=== PATIENT | female | born 1955 | race Caucasian/White ===

== ENCOUNTER 2020-09-29 20:13 | Emergency (ER) | payer OTHER | END 2020-09-29 21:34 | disposition left against medical advice (07) | LOC: MW.ED 20:13 | DX: Z53.21 Procedure and treatment not carried out due to patient leaving prior to being seen by health care provider (principal) ==

== ENCOUNTER 2020-10-03 14:49 | Inpatient (IN) | payer OTHER ==
[2020-10-03] MEDS ORDERED: Sodium Chloride 0.9% 1,000 ML IV ONE (15:38)
--- NOTE | 2020-10-03 15:44 | EDM.PDOC ---
ED HPI GENERAL MEDICAL PROBLEM - General Chief Complaint: General Stated Complaint: COVID POSITIVE Time Seen by Provider: 10/03/20 15:13 Source of Information: Reports: Patient History Limitations: Reports: No Limitations - History of Present Illness INITIAL COMMENTS - FREE TEXT/NARRATIVE: She is a 64-year-old female who tested positive Covid a few days ago presents today for worsening symptoms. States she has a hard time get around caring for self she is weak and tired she also has increased shortness of breath but no cough. She denies any fever chills. He does have diffuse body aches. Has had decreased p.o. intake as well. Patient denies any other symptoms. - Related Data Allergies Allergy/AdvReac Type Severity Reaction Status Date / Time indomethacin Allergy Other Verified 10/03/20 15:09 Home Meds: Home Meds . [No Known Home Meds] 09/29/20 [History] Past Medical History Cardiovascular History: Reports: Hypertension Gastrointestinal History: Reports: GERD Endocrine/Metabolic History: Reports: Hypothyroidism - Infectious Disease History Infectious Disease History: Reports: Chicken Pox Social & Family History - Family History Family Medical History: No Pertinent Family History - Tobacco Use Tobacco Use Status *Q: Never Tobacco User - Caffeine Use Caffeine Use: Reports: None - Recreational Drug Use Recreational Drug Use: No ED ROS GENERAL - Review of Systems Review Of Systems: See Below Constitutional: Reports: Malaise HEENT: Reports: No Symptoms Respiratory: Reports: No Symptoms Cardiovascular: Reports: No Symptoms Endocrine: Reports: No Symptoms GI/Abdominal: Reports: No Symptoms : Reports: No Symptoms Musculoskeletal: Reports: No Symptoms Skin: Reports: No Symptoms Neurological: Reports: No Symptoms Psychiatric: Reports: No Symptoms Hematologic/Lymphatic: Reports: No Symptoms Immunologic: Reports: No Symptoms ED EXAM, GENERAL - Physical Exam Exam: See Below Exam Limited By: No Limitations General Appearance: Alert, WD/WN, No Apparent Distress Eye Exam: Bilateral Eye: EOMI, PERRL Head: Atraumatic, Normocephalic Neck: Normal Inspection Respiratory/Chest: No Respiratory Distress, Lungs Clear, Normal Breath Sounds Cardiovascular: Normal Peripheral Pulses, Regular Rate, Rhythm GI/Abdominal: Normal Bowel Sounds, Soft, Non-Tender Back Exam: Normal Inspection Extremities: Normal Inspection, Normal Range of Motion Neurological: Alert, Oriented, CN II-XII Intact, Normal Cognition, Normal Gait #1 Interpretation EKG Date: 10/03/20 Time: 16:01 Rhythm: NSR Rate (Beats/Min): 72 ST-T: Normal Course - Vital Signs Last Recorded V/S: Last Vital Signs Temp 98.9 F 10/03/20 15:10 Pulse 71 10/03/20 17:28 Resp 20 10/03/20 17:28 BP 106/57 L 10/03/20 17:28 Pulse Ox 94 L 10/03/20 17:28 - Orders/Labs/Meds Orders: Active Orders 24 hr Category Date Time Status Patient Status [ADT] Routine ADT 10/03/20 18:16 Ordered Ang Chest [CT] Stat Exams 10/03/20 16:46 Taken BILIRUBIN DIRECT [CHEM] DAILY Lab 10/03/20 18:15 Ordered BILIRUBIN DIRECT [CHEM] DAILY Lab 10/04/20 18:15 Ordered BILIRUBIN DIRECT [CHEM] DAILY Lab 10/05/20 18:15 Ordered BILIRUBIN DIRECT [CHEM] DAILY Lab 10/06/20 18:15 Ordered BILIRUBIN DIRECT [CHEM] DAILY Lab 10/07/20 18:15 Ordered BILIRUBIN DIRECT [CHEM] DAILY Lab 10/08/20 18:15 Ordered BILIRUBIN DIRECT [CHEM] Stat Lab 10/03/20 18:15 Ordered COMPREHENSIVE METABOLIC PN,CMP [CHEM] DAILY Lab 10/03/20 18:15 Ordered COMPREHENSIVE METABOLIC PN,CMP [CHEM] DAILY Lab 10/04/20 18:15 Ordered COMPREHENSIVE METABOLIC PN,CMP [CHEM] DAILY Lab 10/05/20 18:15 Ordered COMPREHENSIVE METABOLIC PN,CMP [CHEM] DAILY Lab 10/06/20 18:15 Ordered COMPREHENSIVE METABOLIC PN,CMP [CHEM] DAILY Lab 10/07/20 18:15 Ordered COMPREHENSIVE METABOLIC PN,CMP [CHEM] DAILY Lab 10/08/20 18:15 Ordered COMPREHENSIVE METABOLIC PN,CMP [CHEM] Stat Lab 10/03/20 18:15 Ordered CORONAVIRUS COVID-19 LOLIS [MOLEC] Stat Lab 10/03/20 17:29 Received Labs: Laboratory Tests 10/03/20 10/03/20 10/03/20 Range/Units 15:48 15:48 15:48 WBC 4.62 (4.0-11.0) K/uL RBC 4.38 (4.30-5.90) M/uL Hgb 13.1 (12.0-16.0) g/dL Hct 39.3 (36.0-46.0) % MCV 89.7 (80.0-98.0) fL MCH 29.9 (27.0-32.0) pg MCHC 33.3 (31.0-37.0) g/dL RDW Std Deviation 44.8 (28.0-62.0) fl RDW Coeff of Kvng 14 (11.0-15.0) % Plt Count 169 (150-400) K/uL MPV 10.50 (7.40-12.00) fL Neut % (Auto) 71.4 (48.0-80.0) % Lymph % (Auto) 20.8 (16.0-40.0) % [place] % (Auto) 7.6 (0.0-15.0) % Eos % (Auto) 0.2 (0.0-7.0) % Baso % (Auto) 0.0 (0.0-1.5) % Neut # (Auto) 3.3 (1.4-5.7) K/uL Lymph # (Auto) 1.0 (0.6-2.4) K/uL [place] # (Auto) 0.4 (0.0-0.8) K/uL Eos # (Auto) 0.0 (0.0-0.7) K/uL Baso # (Auto) 0.0 (0.0-0.1) K/uL Nucleated RBC % 0.0 /100WBC Nucleated RBCs # 0 K/uL D-Dimer, Quantitative (0.0-0.50) mg/L FEU Sodium 140 (136-145) mmol/L Potassium 3.3 L (3.5-5.1) mmol/L Chloride 101 (98-107) mmol/L Carbon Dioxide 27.5 (21.0-32.0) mmol/L BUN 19 H (7.0-18.0) mg/dL Creatinine 0.9 (0.6-1.0) mg/dL Est Cr Clr Drug Dosing 50.60 mL/min Estimated GFR (MDRD) > 60.0 ml/min Glucose 110 H (74-106) mg/dL Lactic Acid 1.3 (0.4-2.0) mmol/L Calcium 8.3 L (8.5-10.1) mg/dL Phosphorus 3.4 (2.6-4.7) mg/dL Magnesium 2.2 (1.8-2.4) mg/dL Total Bilirubin 0.5 (0.2-1.0) mg/dL AST 49 H (15-37) IU/L ALT 24 (14-63) IU/L Alkaline Phosphatase 101 (46-116) U/L Troponin I < 0.050 (0.000-0.056) ng/mL Total Protein 7.5 (6.4-8.2) g/dL Albumin 3.2 L (3.4-5.0) g/dL Globulin 4.3 H (2.6-4.0) g/dL Albumin/Globulin Ratio 0.7 L (0.9-1.6) Lipase 137 (73-393) U/L 10/03/20 Range/Units 15:48 WBC (4.0-11.0) K/uL RBC (4.30-5.90) M/uL Hgb (12.0-16.0) g/dL Hct (36.0-46.0) % MCV (80.0-98.0) fL MCH (27.0-32.0) pg MCHC (31.0-37.0) g/dL RDW Std Deviation (28.0-62.0) fl RDW Coeff of Kvng (11.0-15.0) % Plt Count (150-400) K/uL MPV (7.40-12.00) fL Neut % (Auto) (48.0-80.0) % Lymph % (Auto) (16.0-40.0) % [place] % (Auto) (0.0-15.0) % Eos % (Auto) (0.0-7.0) % Baso % (Auto) (0.0-1.5) % Neut # (Auto) (1.4-5.7) K/uL Lymph # (Auto) (0.6-2.4) K/uL [place] # (Auto) (0.0-0.8) K/uL Eos # (Auto) (0.0-0.7) K/uL Baso # (Auto) (0.0-0.1) K/uL Nucleated RBC % /100WBC Nucleated RBCs # K/uL D-Dimer, Quantitative 0.67 H (0.0-0.50) mg/L FEU Sodium (136-145) mmol/L Potassium (3.5-5.1) mmol/L Chloride (98-107) mmol/L Carbon Dioxide (21.0-32.0) mmol/L BUN (7.0-18.0) mg/dL Creatinine (0.6-1.0) mg/dL Est Cr Clr Drug Dosing mL/min Estimated GFR (MDRD) ml/min Glucose (74-106) mg/dL Lactic Acid (0.4-2.0) mmol/L Calcium (8.5-10.1) mg/dL Phosphorus (2.6-4.7) mg/dL Magnesium (1.8-2.4) mg/dL Total Bilirubin (0.2-1.0) mg/dL AST (15-37) IU/L ALT (14-63) IU/L Alkaline Phosphatase (46-116) U/L Troponin I (0.000-0.056) ng/mL Total Protein (6.4-8.2) g/dL Albumin (3.4-5.0) g/dL Globulin (2.6-4.0) g/dL Albumin/Globulin Ratio (0.9-1.6) Lipase (73-393) U/L Meds: Medications Discontinued Medications Generic Name Dose Route Start Last Admin Trade Name Freq PRN Reason Stop Dose Admin Dexamethasone 10 mg 10/03/20 16:46 10/03/20 17:27 Dexamethasone 10 Mg/Ml Sdv IVPUSH 10/03/20 16:47 10 mg ONETIME ONE Administration Sodium Chloride 1,000 mls @ 999 mls/hr 10/03/20 15:38 10/03/20 15:50 Normal Saline IV 10/03/20 16:38 999 mls/hr .BOLUS ONE Administration Remdesivir 200 mg/ Sodium 250 mls @ 250 mls/hr 10/03/20 18:15 Chloride IV 10/03/20 18:16 ONETIME ONE - Re-Assessments/Exams Free Text/Narrative Re-Assessment/Exam: 10/03/20 18:16 Still on 4 L sitting still suddenly no 95% we will try to wean patient off oxygen and oxygen does drop down to the 80s. Patient was given Decadron with remdesivir and will be admitted to the hospital. Departure - Departure Time of Disposition: 18:17 Disposition: Admitted As Inpatient 67 Condition: Good Clinical Impression: Hypoxia - Discharge Information *PRESCRIPTION DRUG MONITORING PROGRAM REVIEWED*: Not Applicable *COPY OF PRESCRIPTION DRUG MONITORING REPORT IN PATIENT SHERRON: Not Applicable Referrals: PCP,None [Primary Care Provider] - Forms: ED Department Discharge Sepsis Event Note (ED) - Evaluation Sepsis Screening Result: No Definite Risk - Focused Exam Vital Signs: Vital Signs Temp Pulse Resp BP Pulse Ox 10/03/20 17:28 71 20 106/57 L 94 L 10/03/20 15:10 98.9 F 86 20 109/68 95 - My Orders Last 24 Hours: My Active Orders 10/03/20 16:46 Ang Chest [CT] Stat 10/03/20 17:29 CORONAVIRUS COVID-19 LOLIS [MOLEC] Stat 10/03/20 18:15 BILIRUBIN DIRECT [CHEM] DAILY BILIRUBIN DIRECT [CHEM] Stat COMPREHENSIVE METABOLIC PN,CMP [CHEM] DAILY COMPREHENSIVE METABOLIC PN,CMP [CHEM] Stat 10/03/20 18:16 Patient Status [ADT] Routine 10/04/20 18:15 BILIRUBIN DIRECT [CHEM] DAILY COMPREHENSIVE METABOLIC PN,CMP [CHEM] DAILY 10/05/20 18:15 BILIRUBIN DIRECT [CHEM] DAILY COMPREHENSIVE METABOLIC PN,CMP [CHEM] DAILY 10/06/20 18:15 BILIRUBIN DIRECT [CHEM] DAILY COMPREHENSIVE METABOLIC PN,CMP [CHEM] DAILY 10/07/20 18:15 BILIRUBIN DIRECT [CHEM] DAILY COMPREHENSIVE METABOLIC PN,CMP [CHEM] DAILY 10/08/20 18:15 BILIRUBIN DIRECT [CHEM] DAILY COMPREHENSIVE METABOLIC PN,CMP [CHEM] DAILY - Assessment/Plan Last 24 Hours: My Active Orders 10/03/20 16:46 Ang Chest [CT] Stat 10/03/20 17:29 CORONAVIRUS COVID-19 LOLIS [MOLEC] Stat 10/03/20 18:15 BILIRUBIN DIRECT [CHEM] DAILY BILIRUBIN DIRECT [CHEM] Stat COMPREHENSIVE METABOLIC PN,CMP [CHEM] DAILY COMPREHENSIVE METABOLIC PN,CMP [CHEM] Stat 10/03/20 18:16 Patient Status [ADT] Routine 10/04/20 18:15 BILIRUBIN DIRECT [CHEM] DAILY COMPREHENSIVE METABOLIC PN,CMP [CHEM] DAILY 10/05/20 18:15 BILIRUBIN DIRECT [CHEM] DAILY COMPREHENSIVE METABOLIC PN,CMP [CHEM] DAILY 10/06/20 18:15 BILIRUBIN DIRECT [CHEM] DAILY COMPREHENSIVE METABOLIC PN,CMP [CHEM] DAILY 10/07/20 18:15 BILIRUBIN DIRECT [CHEM] DAILY COMPREHENSIVE METABOLIC PN,CMP [CHEM] DAILY 10/08/20 18:15 BILIRUBIN DIRECT [CHEM] DAILY COMPREHENSIVE METABOLIC PN,CMP [CHEM] DAILY Plan: Patient is a 64-year-old female presents today for worsening Covid symptoms. Will obtain x-ray EKG labs reassess provide oxygen. Patient is satting 96% on O2 now became is an 84% on room air.
--- NOTE | 2020-10-03 16:41 | CR ---
INDICATION: Cough. Hypoxia. COVID infection TECHNIQUE: Chest 1 view. COMPARISON: None FINDINGS: Cardiovascular and mediastinum: Heart size and vasculature are normal in caliber and appearance. Mediastinum is within normal limits. Lungs and pleural space: There are hazy ground-glass opacities in the right mid and lower lung zone. Hazy ground-glass and streaky opacities in the left mid and lower lung zone. No pleural effusion. No pneumothorax. Bones and soft tissues: No acute findings. Mild scoliosis. IMPRESSION: Bilateral pulmonary opacities consistent with the provided history of COVID infection. Dictated by Abdi Thompson MD @ 10/03/2020 4:39:[address] Abdi Thompson @ Oct 03 2020 4:39PM
[2020-10-03 16:45] LABS: BLOOD UREA NITROGEN,BUN 19 mg/dL (7.0-18.0); CARBON DIOXIDE,CO2 27.5 mmol/L (21.0-32.0); CHLORIDE,CL 101 mmol/L (98-107); GLUCOSE RANDOM 110 mg/dL (74-106); LIPASE 137 U/L (73-393); POTASSIUM,K 3.3 mmol/L (3.5-5.1); SODIUM,NA 140 mmol/L (136-145)
[2020-10-03] MEDS ORDERED: Dexamethasone 10 MG/ML SDV IVPUSH ONE (16:46)
[2020-10-03] MEDS ORDERED: Iopamidol 755 MG/ML 500 ML Multipack Bottle IVPUSH ONE (18:18)
--- NOTE | 2020-10-03 18:47 | CT ---
INDICATION: COVID-19 infection with dyspnea and elevated D-dimer TECHNIQUE: CT chest pulmonary PE protocol acquired with 60 cc Isovue 370 IV contrast. COMPARISON: None FINDINGS: Cardiovascular structures: Normal vascular enhancement of the pulmonary arteries, no sign of pulmonary embolism. Heart size is normal. There are coronary artery calcifications. No sign of aneurysm in the thoracic aorta. Mediastinum and jorge: No mass or adenopathy. Small hiatal hernia. Lungs: Diffuse ground-glass opacities throughout the lungs. Pleura and pericardium: No effusions. Chest wall and axilla: No mass or adenopathy. Upper abdomen: Unremarkable. Bones: Old T3 and T8 compression fractures. IMPRESSION: No pulmonary embolism. Ground-glass opacities throughout the lungs consistent with COVID-19 infection. Coronary artery disease. Small hiatal hernia. Please note that all CT scans at this facility use dose modulation, iterative reconstruction, and/or weight-based dosing when appropriate to reduce radiation dose to as low as reasonably achievable. Dictated by Stephany Singer MD @ 10/03/2020 6:45:[address] Stephany Singer @ Oct 03 2020 6:45PM
[2020-10-03] MEDS: REMDESIVIR 200 MG in Sodium Chloride 0.9% 250 ML IV ONE ×2 (19:18→19:23)
[2020-10-03 19:57] LABS: BLOOD UREA NITROGEN,BUN 16 mg/dL (7.0-18.0); CARBON DIOXIDE,CO2 27.4 mmol/L (21.0-32.0); CHLORIDE,CL 102 mmol/L (98-107); GLUCOSE RANDOM 104 mg/dL (74-106); POTASSIUM,K 3.8 mmol/L (3.5-5.1); SODIUM,NA 140 mmol/L (136-145)
[2020-10-03] MEDS ORDERED: REMDESIVIR 200 MG in Sodium Chloride 0.9% 250 ML IV ONE (21:00)
[2020-10-03] MEDS ORDERED: Ondansetron 4 MG Tab PO PRN (23:05)
[2020-10-03] MEDS ORDERED: Acetaminophen 325 MG Tab PO PRN (23:06)
[2020-10-03] MEDS ORDERED: Enoxaparin 40 MG/0.4 ML Syringe SUBCUT ONE (23:30)
[2020-10-04 06:07] LABS: BLOOD UREA NITROGEN,BUN 15 mg/dL (7.0-18.0); CARBON DIOXIDE,CO2 25.6 mmol/L (21.0-32.0); CHLORIDE,CL 102 mmol/L (98-107); GLUCOSE RANDOM 156 mg/dL (74-106); POTASSIUM,K 3.6 mmol/L (3.5-5.1); SODIUM,NA 139 mmol/L (136-145)
[2020-10-04] MEDS: Pantoprazole 40 MG Tab.CR PO SCH (06:48)
[2020-10-04] MEDS: Levothyroxine 88 MCG Tab PO SCH (06:48)
[2020-10-04] MEDS ORDERED: Benzonatate 100 MG Cap PO PRN (08:00)
[2020-10-04] MEDS ORDERED: Codeine/guaiFENesin 10-100 MG/5 ML Syrup 5 ML Cup PO PRN (08:00)
--- NOTE | 2020-10-04 08:04 | PCM.HP.2 ---
H&P History of Present Illness - General Date of Service: 10/04/20 Admit Problem/Dx: Admission Diagnosis/Problem Admission Diagnosis/Problem Hypoxia Source of Information: Patient History Limitations: Reports: No Limitations - History of Present Illness Initial Comments - Free Text/Narative: This 64-year-old female with past medical history of HTN, GERD, and for thyroidism presented to the ER with complaints of shortness of breath and generalized weakness. She reports that she tested positive for COVID-19 few days ago. She said she is having a hard time getting around and caring for herself due to weakness and fatigue. She reports increased shortness of breath with ambulation denies any cough. Denies any fevers or chills but does have diffuse body aches with decreased oral intake. She also reports diarrhea, that is clear and liquidy. Denies chest pain. Reports mild shortness of breath with mild non productive cough this morning. Denies abdominal pain. Ate some breakfast. She denies tobacco use, alcohol use and no recreational drug use. In the ER CBC within normal limits. D-dimer mildly elevated at 0.67. Sodium 140 potassium 3.3 BUN 19 creatinine 0.9. Glucose 110 lactic acid normal at 1.3. AST mildly elevated at 49 troponin negative Covid swab repeated was positive. Chest x-ray in the ER obtained which reveals bilateral pulmonary opacities cons istent with provided history of COVID-19. Due to mildly elevated D-dimer CT angio was performed no pulmonary embolism noted but did note the ground glass opacities throughout the lungs. Coronary artery disease. Small hiatal hernia. Patient was offered remdesivir in the ER but due to her being ill for approximately the last 2 weeks she had initially refused this. She was treated with 10 mg dexamethasone along with normal saline 1 L bolus. In the ER she was noted to be hypoxic on room air satting 84%. She was placed on 4 L sats increased to 95% and she has maintained well at 2 L in the mid 90s. She admitted inpatient for acute hypoxic respiratory failure and COVID-19 viral pneumonia. - Related Data Allergies/Adverse Reactions: Allergies Allergy/AdvReac Type Severity Reaction Status Date / Time indomethacin Allergy Other Verified 10/03/20 20:30 Home Medications: Home Meds Escitalopram [Lexapro] 1 tab PO DAILY 10/03/20 [History] Levothyroxine [Synthroid] 88 mcg PO ACBREAKFAST 10/03/20 [History] Losartan [Cozaar] 1 tab PO DAILY 10/03/20 [History] Omeprazole 1 cap PO DAILY 10/03/20 [History] atorvaSTATin [Lipitor] 20 mg PO DAILY 10/03/20 [History] ondansetron HCL [Zofran] 1 tab PO TID PRN 10/03/20 [History] Past Medical History Cardiovascular History: Reports: High Cholesterol, Hypertension Gastrointestinal History: Reports: GERD Endocrine/Metabolic History: Reports: Hypothyroidism - Infectious Disease History Infectious Disease History: Reports: Chicken Pox Social & Family History - Family History Family Medical History: No Pertinent Family History Cardiac: Reports: Hypertension - Tobacco Use Tobacco Use Status *Q: Never Tobacco User Second Hand Smoke Exposure: No - Caffeine Use Caffeine Use: Reports: Coffee - Recreational Drug Use Recreational Drug Use: No H&P Review of Systems - Review of Systems: Review Of Systems: See Below General: Reports: Chills, Malaise, Weakness, Fatigue, Decreased Appetite HEENT: Reports: No Symptoms. Denies: Headaches, Sinus Congestion, Sore Throat Pulmonary: Reports: Shortness of Breath, Cough. Denies: Sputum, Hemoptysis Cardiovascular: Reports: Dyspnea on Exertion. Denies: Chest Pain Gastrointestinal: Reports: Diarrhea, Decreased Appetite. Denies: Abdominal Pain, Black Stool, Bloody Stool, Nausea, Vomiting Genitourinary: Reports: No Symptoms. Denies: Dysuria, Frequency, Burning Musculoskeletal: Reports: No Symptoms Skin: Reports: No Symptoms Psychiatric: Reports: No Symptoms Neurological: Reports: No Symptoms Hematologic/Lymphatic: Reports: No Symptoms Immunologic: Reports: No Symptoms Exam - Exam Exam: See Below - Vital Signs Vital Signs: Last Vital Signs Temp 97.7 F 10/04/20 03:39 Pulse 64 10/04/20 03:39 Resp 18 10/04/20 03:39 BP 131/63 10/04/20 03:39 Pulse Ox 93 L 10/04/20 03:39 Weight: 65.771 kg - Exam Quality Assessment: Supplemental Oxygen, DVT Prophylaxis General: Alert, Oriented, Cooperative HEENT: Conjunctiva Clear, Mucosa Moist & [place], Posterior Pharynx Clear Lungs: Normal Respiratory Effort, Crackles (fine bibasilar) Cardiovascular: Regular Rate, Regular Rhythm, Normal S1, Normal S2. No: Systolic Murmur GI/Abdominal Exam: Normal Bowel Sounds, Soft, Non-Tender Back Exam: Normal Inspection, Full Range of Motion Extremities: Normal Inspection, Normal Range of Motion, Non-Tender, No Pedal Edema Skin: Warm, Dry, Intact Neuro Extensive - Mental Status: Alert, Oriented x3, Normal Mood/Affect Neuro Extensive - Motor, Sensory, Reflexes: CN II-XII Intact Psychiatric: Alert, Normal Affect, Normal Mood - Patient Data Lab Results Last 24 hrs: Laboratory Results - last 24 hr 10/03/20 10/03/20 10/03/20 Range/Units 15:48 15:48 15:48 WBC 4.62 (4.0-11.0) K/uL RBC 4.38 (4.30-5.90) M/uL Hgb 13.1 (12.0-16.0) g/dL Hct 39.3 (36.0-46.0) % MCV 89.7 (80.0-98.0) fL MCH 29.9 (27.0-32.0) pg MCHC 33.3 (31.0-37.0) g/dL RDW Std Deviation 44.8 (28.0-62.0) fl RDW Coeff of Kvng 14 (11.0-15.0) % Plt Count 169 (150-400) K/uL MPV 10.50 (7.40-12.00) fL Neut % (Auto) 71.4 (48.0-80.0) % Lymph % (Auto) 20.8 (16.0-40.0) % [place] % (Auto) 7.6 (0.0-15.0) % Eos % (Auto) 0.2 (0.0-7.0) % Baso % (Auto) 0.0 (0.0-1.5) % Neut # (Auto) 3.3 (1.4-5.7) K/uL Lymph # (Auto) 1.0 (0.6-2.4) K/uL [place] # (Auto) 0.4 (0.0-0.8) K/uL Eos # (Auto) 0.0 (0.0-0.7) K/uL Baso # (Auto) 0.0 (0.0-0.1) K/uL Add Manual Diff Neutrophils % (Manual) (48.0-80.0) % Lymphocytes % (Manual) (16.0-40.0) % Monocytes % (Manual) (0.0-15.0) % Nucleated RBC % 0.0 /100WBC Absolute Seg Neuts (1.4-5.7) Lymphocytes # (Manual) (0.6-2.4) Monocytes # (Manual) (0.0-0.8) Nucleated RBCs # 0 K/uL D-Dimer, Quantitative (0.0-0.50) mg/L FEU Sodium 140 (136-145) mmol/L Potassium 3.3 L (3.5-5.1) mmol/L Chloride 101 (98-107) mmol/L Carbon Dioxide 27.5 (21.0-32.0) mmol/L BUN 19 H (7.0-18.0) mg/dL Creatinine 0.9 (0.6-1.0) mg/dL Est Cr Clr Drug Dosing 50.60 mL/min Estimated GFR (MDRD) > 60.0 ml/min Glucose 110 H (74-106) mg/dL Lactic Acid 1.3 (0.4-2.0) mmol/L Calcium 8.3 L (8.5-10.1) mg/dL Phosphorus 3.4 (2.6-4.7) mg/dL Magnesium 2.2 (1.8-2.4) mg/dL Total Bilirubin 0.5 (0.2-1.0) mg/dL Direct Bilirubin (0.0-0.5) mg/dL AST 49 H (15-37) IU/L ALT 24 (14-63) IU/L Alkaline Phosphatase 101 (46-116) U/L Troponin I < 0.050 (0.000-0.056) ng/mL Total Protein 7.5 (6.4-8.2) g/dL Albumin 3.2 L (3.4-5.0) g/dL Globulin 4.3 H (2.6-4.0) g/dL Albumin/Globulin Ratio 0.7 L (0.9-1.6) Lipase 137 (73-393) U/L SARS-CoV-2 RNA ([facility]OL[facility]) (NEGATIVE) 10/03/20 10/03/20 10/03/20 Range/Units 15:48 17:29 19:27 WBC (4.0-11.0) K/uL RBC (4.30-5.90) M/uL Hgb (12.0-16.0) g/dL Hct (36.0-46.0) % MCV (80.0-98.0) fL MCH (27.0-32.0) pg MCHC (31.0-37.0) g/dL RDW Std Deviation (28.0-62.0) fl RDW Coeff of Kvng (11.0-15.0) % Plt Count (150-400) K/uL MPV (7.40-12.00) fL Neut % (Auto) (48.0-80.0) % Lymph % (Auto) (16.0-40.0) % [place] % (Auto) (0.0-15.0) % Eos % (Auto) (0.0-7.0) % Baso % (Auto) (0.0-1.5) % Neut # (Auto) (1.4-5.7) K/uL Lymph # (Auto) (0.6-2.4) K/uL [place] # (Auto) (0.0-0.8) K/uL Eos # (Auto) (0.0-0.7) K/uL Baso # (Auto) (0.0-0.1) K/uL Add Manual Diff Neutrophils % (Manual) (48.0-80.0) % Lymphocytes % (Manual) (16.0-40.0) % Monocytes % (Manual) (0.0-15.0) % Nucleated RBC % /100WBC Absolute Seg Neuts (1.4-5.7) Lymphocytes # (Manual) (0.6-2.4) Monocytes # (Manual) (0.0-0.8) Nucleated RBCs # K/uL D-Dimer, Quantitative 0.67 H (0.0-0.50) mg/L FEU Sodium 140 (136-145) mmol/L Potassium 3.8 (3.5-5.1) mmol/L Chloride 102 (98-107) mmol/L Carbon Dioxide 27.4 (21.0-32.0) mmol/L BUN 16 (7.0-18.0) mg/dL Creatinine 0.9 (0.6-1.0) mg/dL Est Cr Clr Drug Dosing 50.60 mL/min Estimated GFR (MDRD) > 60.0 ml/min Glucose 104 (74-106) mg/dL Lactic Acid (0.4-2.0) mmol/L Calcium 7.9 L (8.5-10.1) mg/dL Phosphorus (2.6-4.7) mg/dL Magnesium (1.8-2.4) mg/dL Total Bilirubin 0.5 (0.2-1.0) mg/dL Direct Bilirubin 0.10 (0.0-0.5) mg/dL AST 46 H (15-37) IU/L ALT 23 (14-63) IU/L Alkaline Phosphatase 95 (46-116) U/L Troponin I (0.000-0.056) ng/mL Total Protein 7.0 (6.4-8.2) g/dL Albumin 3.0 L (3.4-5.0) g/dL Globulin 4.0 (2.6-4.0) g/dL Albumin/Globulin Ratio 0.8 L (0.9-1.6) Lipase (73-393) U/L SARS-CoV-2 RNA (LOLIS) POSITIVE H (NEGATIVE) 10/04/20 10/04/20 Range/Units 05:36 05:36 WBC 1.93 L (4.0-11.0) K/uL RBC 4.11 L (4.30-5.90) M/uL Hgb 12.1 (12.0-16.0) g/dL Hct 36.5 (36.0-46.0) % MCV 88.8 (80.0-98.0) fL MCH 29.4 (27.0-32.0) pg MCHC 33.2 (31.0-37.0) g/dL RDW Std Deviation 43.5 (28.0-62.0) fl RDW Coeff of Kvng 13 (11.0-15.0) % Plt Count 181 (150-400) K/uL MPV 10.70 (7.40-12.00) fL Neut % (Auto) (48.0-80.0) % Lymph % (Auto) (16.0-40.0) % [place] % (Auto) (0.0-15.0) % Eos % (Auto) (0.0-7.0) % Baso % (Auto) (0.0-1.5) % Neut # (Auto) (1.4-5.7) K/uL Lymph # (Auto) (0.6-2.4) K/uL [place] # (Auto) (0.0-0.8) K/uL Eos # (Auto) (0.0-0.7) K/uL Baso # (Auto) (0.0-0.1) K/uL Add Manual Diff YES Neutrophils % (Manual) 66 (48.0-80.0) % Lymphocytes % (Manual) 30 (16.0-40.0) % Monocytes % (Manual) 4 (0.0-15.0) % Nucleated RBC % 0.0 /100WBC Absolute Seg Neuts 1.3 L (1.4-5.7) Lymphocytes # (Manual) 0.6 (0.6-2.4) Monocytes # (Manual) 0.1 (0.0-0.8) Nucleated RBCs # 0 K/uL D-Dimer, Quantitative (0.0-0.50) mg/L FEU Sodium 139 (136-145) mmol/L Potassium 3.6 (3.5-5.1) mmol/L Chloride 102 (98-107) mmol/L Carbon Dioxide 25.6 (21.0-32.0) mmol/L BUN 15 (7.0-18.0) mg/dL Creatinine 0.7 (0.6-1.0) mg/dL Est Cr Clr Drug Dosing 65.06 mL/min Estimated GFR (MDRD) > 60.0 ml/min Glucose 156 H (74-106) mg/dL Lactic Acid (0.4-2.0) mmol/L Calcium 7.9 L (8.5-10.1) mg/dL Phosphorus (2.6-4.7) mg/dL Magnesium (1.8-2.4) mg/dL Total Bilirubin 0.4 (0.2-1.0) mg/dL Direct Bilirubin (0.0-0.5) mg/dL AST 43 H (15-37) IU/L ALT 26 (14-63) IU/L Alkaline Phosphatase 90 (46-116) U/L Troponin I (0.000-0.056) ng/mL Total Protein 6.8 (6.4-8.2) g/dL Albumin 2.8 L (3.4-5.0) g/dL Globulin 4.0 (2.6-4.0) g/dL Albumin/Globulin Ratio 0.7 L (0.9-1.6) Lipase (73-393) U/L SARS-CoV-2 RNA ([facility]LLIS) (NEGATIVE) Result Diagrams: 10/04/20 05:36 10/04/20 05:36 Sepsis Event Note - Evaluation Sepsis Screening Result: Possible Sepsis Risk - Focused Exam Vital Signs: Vital Signs Temp Pulse Resp BP Pulse Ox 10/04/20 03:39 97.7 F 64 18 131/63 93 L 10/04/20 02:00 18 94 L 10/03/20 23:09 97.1 F 64 18 138/65 92 L 10/03/20 20:28 97.4 F 65 20 125/63 93 L - Problem List (1) Acute respiratory failure with hypoxia SNOMED Code(s): 06173840, 829276318 ICD Code: J96.01 - ACUTE RESPIRATORY FAILURE WITH HYPOXIA Status: Acute Current Visit: Yes (2) COVID-19 SNOMED Code(s): 077448075 ICD Code: U07.1 - COVID-19 Status: Acute Current Visit: Yes (3) Viral pneumonia SNOMED Code(s): 64576829 ICD Code: J12.9 - VIRAL PNEUMONIA, UNSPECIFIED Status: Acute Current Visit: Yes (4) Hypertension SNOMED Code(s): 59489116 ICD Code: I10 - ESSENTIAL (PRIMARY) HYPERTENSION Status: Chronic Current Visit: Yes (5) Hypothyroidism SNOMED Code(s): 04573963 ICD Code: E03.9 - HYPOTHYROIDISM, UNSPECIFIED Status: Chronic Current Visit: Yes (6) GERD (gastroesophageal reflux disease) SNOMED Code(s): 135007319 ICD Code: K21.9 - GASTRO-ESOPHAGEAL REFLUX DISEASE WITHOUT ESOPHAGITIS Status: Chronic Current Visit: Yes Problem List Initiated/Reviewed/Updated: Yes Orders Last 24hrs: Active Orders 24 hr Category Date Time Status Patient Status [ADT] Routine ADT 10/03/20 18:16 Active Antiembolic Devices [RC] PER UNIT ROUTINE Care 10/03/20 23:07 Active Oxygen Therapy [RC] PRN Care 10/03/20 23:06 Active Up ad Tamara [RC] ASDIRECTED Care 10/03/20 23:06 Active VTE/DVT Education [RC] PER UNIT ROUTINE Care 10/03/20 23:06 Active Vital Signs [RC] Q4H Care 10/03/20 23:06 Active CBC WITH AUTO DIFF [HEME] AM Lab 10/05/20 05:11 Ordered CBC WITH AUTO DIFF [HEME] AM Lab 10/06/20 05:11 Ordered CBC WITH AUTO DIFF [HEME] AM Lab 10/07/20 05:11 Ordered CBC WITH AUTO DIFF [HEME] AM Lab 10/08/20 05:11 Ordered COMPREHENSIVE METABOLIC PN,CMP [CHEM] AM Lab 10/05/20 05:11 Ordered COMPREHENSIVE METABOLIC PN,CMP [CHEM] AM Lab 10/06/20 05:11 Ordered COMPREHENSIVE METABOLIC PN,CMP [CHEM] AM Lab 10/07/20 05:11 Ordered COMPREHENSIVE METABOLIC PN,CMP [CHEM] AM Lab 10/08/20 05:11 Ordered Acetaminophen [TylenoL] Med 10/03/20 23:06 Active 650 mg PO Q4H PRN Enoxaparin [Lovenox] Med 10/04/20 21:00 Active 40 mg SUBCUT Q24H Escitalopram [Lexapro] Med 10/04/20 09:00 Active 20 mg PO DAILY Levothyroxine [Synthroid] Med 10/04/20 07:30 Active 88 mcg PO ACBREAKFAST Losartan [Cozaar] Med 10/04/20 09:00 Active 50 mg PO DAILY Ondansetron [Zofran] Med 10/03/20 23:05 Active 4 mg PO TID PRN Pantoprazole [ProTONIX] Med 10/04/20 07:30 Active 40 mg PO ACBREAKFAST Remdesivir 100 mg Med 10/04/20 21:00 Active Sodium Chloride 0.9% [Normal Saline] 100 ml IV Q24H atorvaSTATin [Lipitor] Med 10/04/20 09:00 Active 20 mg PO DAILY dexAMETHasone Med 10/04/20 17:00 Active 6 mg PO Q24H Sequential Compression Device [OM.PC] Per Unit Routine Oth 10/03/20 23:06 Ordered Resuscitation Status Routine Resus Stat 10/03/20 23:06 Ordered Medication Orders Acetaminophen (Acetaminophen 325 Mg Tab) 650 mg PO Q4H PRN PRN Reason: Pain (Mild 1-3)/fever Atorvastatin Calcium (Atorvastatin 20 Mg Tab) 20 mg PO DAILY [facility] Dexamethasone (Dexamethasone 4 Mg Tab) 6 mg PO Q24H [facility] Enoxaparin Sodium (Enoxaparin 40 Mg/0.4 Ml Syringe) 40 mg SUBCUT Q24H [facility] Escitalopram Oxalate (Escitalopram 10 Mg Tab) 20 mg PO DAILY [facility] Remdesivir 100 mg/ Sodium (Chloride) 100 mls @ 100 mls/hr IV Q24H [facility]A Stop: 10/07/20 21:59 Levothyroxine Sodium (Levothyroxine 88 Mcg Tab) 88 mcg PO ACBREAKFAST [facility] Last Admin: 10/04/20 06:48 Dose: 88 mcg Documented by: MANOLO Losartan Potassium (Losartan 50 Mg Tab) 50 mg PO DAILY [facility] Ondansetron HCl (Ondansetron 4 Mg Tab) 4 mg PO TID PRN PRN Reason: Nausea/Vomiting Pantoprazole Sodium (Pantoprazole 40 Mg Tab.Cr) 40 mg PO ACBREAKFAST [facility] Last Admin: 10/04/20 06:48 Dose: 40 mg Documented by: MANOLO Assessment/Plan Comment:: This 64-year-old female admitted with acute hypoxic respiratory failure, COVID- 19 viral pneumonia 1. Acute hypoxic respiratory failure/COVID-19/viral pneumonia -Continue remdesivir 100 mg IV daily x4 days -Continue dexamethasone 6 mg p.o. daily -Add Combivent every 4 hours 2 puffs -Encourage I-S/Acapella and self proning -Lovenox daily -Monitor LFTs during remdesivir treatment -Oxygen to keep sats greater than 92% wean as possible 2. Hypertension -Monitor blood pressures continue losartan 3. Hypothyroidism -Continue levothyroxine 4. GERD -Continue Protonix VTE prophylaxis: Lovenox GI prophylaxis: Protonix CODE STATUS: DNR/DNI Dispo: 2 to 3 days pending improvement and ability to wean off oxygen.
[2020-10-04] MEDS ORDERED: Sodium Chloride 0.9% 2.5 ML Syringe FLUSH PRN (08:10)
[2020-10-04] MEDS: Escitalopram 10 MG Tab PO SCH (08:15)
[2020-10-04] MEDS: Losartan 50 MG Tab PO SCH (08:16)
[2020-10-04] MEDS: atorvaSTATin 20 MG Tab PO SCH (08:16)
[2020-10-04] MEDS: Albuterol/Ipratropium 4 GM Inhalation Spray INH SCH ×4 (10:26→21:04)
[2020-10-04] MEDS: Dexamethasone 4 MG Tab PO SCH (16:57)
[2020-10-04] MEDS: REMDESIVIR 100 MG in Sodium Chloride 0.9% 100 ML IV SCH (20:59)
[2020-10-04] MEDS: Enoxaparin 40 MG/0.4 ML Syringe SUBCUT SCH (21:00)
[2020-10-05] MEDS: Albuterol/Ipratropium 4 GM Inhalation Spray INH SCH ×6 (03:00→22:10)
[2020-10-05] MEDS: Levothyroxine 88 MCG Tab PO SCH (06:34)
[2020-10-05] MEDS: Pantoprazole 40 MG Tab.CR PO SCH (06:34)
[2020-10-05 06:56] LABS: BLOOD UREA NITROGEN,BUN 15 mg/dL (7.0-18.0); CARBON DIOXIDE,CO2 27.9 mmol/L (21.0-32.0); CHLORIDE,CL 105 mmol/L (98-107); GLUCOSE RANDOM 165 mg/dL (74-106); POTASSIUM,K 3.9 mmol/L (3.5-5.1); SODIUM,NA 141 mmol/L (136-145)
[2020-10-05] MEDS: Losartan 50 MG Tab PO SCH (08:40)
[2020-10-05] MEDS: atorvaSTATin 20 MG Tab PO SCH (08:40)
[2020-10-05] MEDS: Escitalopram 10 MG Tab PO SCH (08:41)
--- NOTE | 2020-10-05 15:13 | PCM.PN ---
- General Info Date of Service: 10/05/20 - Review of Systems Systems Review Comment:: feeling better, shortness of breath improvig - Patient Data Vitals - Most Recent: Last Vital Signs Temp 36.3 C 10/05/20 11:57 Pulse 80 10/05/20 11:57 Resp 17 10/05/20 11:57 BP 104/64 10/05/20 11:57 Pulse Ox 92 L 10/05/20 11:57 Weight - Most Recent: 65.771 kg I&O - Last 24 Hours: Intake & Output 10/05/20 10/05/20 10/05/20 06:59 14:59 22:59 Intake Total 400 Output Total 550 Balance -150 Lab Results Last 24 Hours: Laboratory Results - last 24 hr 10/05/20 10/05/20 Range/Units 06:15 06:15 WBC 6.10 (4.0-11.0) K/uL RBC 4.13 L (4.30-5.90) M/uL Hgb 12.1 (12.0-16.0) g/dL Hct 36.7 (36.0-46.0) % MCV 88.9 (80.0-98.0) fL MCH 29.3 (27.0-32.0) pg MCHC 33.0 (31.0-37.0) g/dL RDW Std Deviation 43.2 (28.0-62.0) fl RDW Coeff of Kvng 13 (11.0-15.0) % Plt Count 235 (150-400) K/uL MPV 10.70 (7.40-12.00) fL Neut % (Auto) 81.2 H (48.0-80.0) % Lymph % (Auto) 12.0 L (16.0-40.0) % Williams % (Auto) 6.6 (0.0-15.0) % Eos % (Auto) 0.0 (0.0-7.0) % Baso % (Auto) 0.2 (0.0-1.5) % Neut # (Auto) 5.0 (1.4-5.7) K/uL Lymph # (Auto) 0.7 (0.6-2.4) K/uL Williams # (Auto) 0.4 (0.0-0.8) K/uL Eos # (Auto) 0.0 (0.0-0.7) K/uL Baso # (Auto) 0.0 (0.0-0.1) K/uL Nucleated RBC % 0.0 /100WBC Nucleated RBCs # 0 K/uL Sodium 141 (136-145) mmol/L Potassium 3.9 (3.5-5.1) mmol/L Chloride 105 (98-107) mmol/L Carbon Dioxide 27.9 (21.0-32.0) mmol/L BUN 15 (7.0-18.0) mg/dL Creatinine 0.8 (0.6-1.0) mg/dL Est Cr Clr Drug Dosing 56.93 mL/min Estimated GFR (MDRD) > 60.0 ml/min Glucose 165 H (74-106) mg/dL Calcium 8.2 L (8.5-10.1) mg/dL Total Bilirubin 0.2 (0.2-1.0) mg/dL AST 38 H (15-37) IU/L ALT 23 (14-63) IU/L Alkaline Phosphatase 90 (46-116) U/L Total Protein 6.8 (6.4-8.2) g/dL Albumin 3.0 L (3.4-5.0) g/dL Globulin 3.8 (2.6-4.0) g/dL Albumin/Globulin Ratio 0.8 L (0.9-1.6) Med Orders - Current: Current Medications Acetaminophen (Acetaminophen 325 Mg Tab) 650 mg PO Q4H PRN PRN Reason: Pain (Mild 1-3)/fever Albuterol/Ipratropium (Albuterol/Ipratropium 4 Gm Inhalation Kennard) 0 gm INH Q4HRRT [facility] Last Admin: 10/05/20 13:46 Dose: 2 puff Documented by: Atorvastatin Calcium (Atorvastatin 20 Mg Tab) 20 mg PO DAILY [facility] Last Admin: 10/05/20 08:40 Dose: 20 mg Documented by: Benzonatate (Benzonatate 100 Mg Cap) 200 mg PO Q8H PRN PRN Reason: Cough Dexamethasone (Dexamethasone 4 Mg Tab) 6 mg PO Q24H [facility] Last Admin: 10/04/20 16:57 Dose: 6 mg Documented by: Enoxaparin Sodium (Enoxaparin 40 Mg/0.4 Ml Syringe) 40 mg SUBCUT Q24H [facility] Last Admin: 10/04/20 21:00 Dose: 40 mg Documented by: Escitalopram Oxalate (Escitalopram 10 Mg Tab) 20 mg PO DAILY [facility] Last Admin: 10/05/20 08:41 Dose: 20 mg Documented by: Guaifenesin/Codeine Phosphate (Codeine/Guaifenesin 10-100 Mg/5 Ml Syrup 5 Ml Cup) 5 ml PO Q4H PRN PRN Reason: Cough Remdesivir 100 mg/ Sodium (Chloride) 100 mls @ 100 mls/hr IV Q24H [facility] Stop: 10/07/20 21:59 Last Admin: 10/04/20 20:59 Dose: 100 mls/hr Documented by: Levothyroxine Sodium (Levothyroxine 88 Mcg Tab) 88 mcg PO ACBREAKFAST [facility] Last Admin: 10/05/20 06:34 Dose: 88 mcg Documented by: Losartan Potassium (Losartan 50 Mg Tab) 50 mg PO DAILY [facility] Last Admin: 10/05/20 08:40 Dose: 50 mg Documented by: Ondansetron HCl (Ondansetron 4 Mg Tab) 4 mg PO TID PRN PRN Reason: Nausea/Vomiting Pantoprazole Sodium (Pantoprazole 40 Mg Tab.Cr) 40 mg PO ACBREAKFAST [facility] Last Admin: 10/05/20 06:34 Dose: 40 mg Documented by: Sodium Chloride (Sodium Chloride 0.9% 2.5 Ml Syringe) 2.5 ml FLUSH ASDIRECTED PRN PRN Reason: Keep Vein Open Discontinued Medications Dexamethasone (Dexamethasone 10 Mg/Ml Sdv) 10 mg IVPUSH ONETIME ONE Stop: 10/03/20 16:47 Last Admin: 10/03/20 17:27 Dose: 10 mg Documented by: Enoxaparin Sodium (Enoxaparin 40 Mg/0.4 Ml Syringe) 40 mg SUBCUT NOW ONE Stop: 10/03/20 23:31 Last Admin: 10/03/20 23:17 Dose: 40 mg Documented by: Sodium Chloride (Normal Saline) 1,000 mls @ 999 mls/hr IV .BOLUS ONE Stop: 10/03/20 16:38 Last Admin: 10/03/20 15:50 Dose: 999 mls/hr Documented by: Remdesivir 200 mg/ Sodium (Chloride) 250 mls @ 250 mls/hr IV ONETIME ONE Stop: 10/03/20 18:16 Last Admin: 10/03/20 19:23 Dose: Not Given Documented by: Remdesivir 200 mg/ Sodium (Chloride) 250 mls @ 250 mls/hr IV ONETIME ONE Stop: 10/03/20 21:59 Last Admin: 10/03/20 21:00 Dose: 250 mls/hr Documented by: Iopamidol (Iopamidol 755 Mg/Ml 500 Ml Multipack Bottle) 60 ml IVPUSH ONETIME ONE Stop: 10/03/20 18:19 Last Admin: 10/03/20 18:19 Dose: 60 ml Documented by: - Exam General: Alert, Oriented Lungs: Clear to Auscultation, Normal Respiratory Effort Cardiovascular: Regular Rate, Regular Rhythm GI/Abdominal Exam: Soft, Non-Tender Extremities: Non-Tender, No Pedal Edema Skin: Warm, Dry, Intact Neurological: No New Focal Deficit - Patient Data Lab Results Last 24 hrs: Laboratory Results - last 24 hr 10/05/20 10/05/20 Range/Units 06:15 06:15 WBC 6.10 (4.0-11.0) K/uL RBC 4.13 L (4.30-5.90) M/uL Hgb 12.1 (12.0-16.0) g/dL Hct 36.7 (36.0-46.0) % MCV 88.9 (80.0-98.0) fL MCH 29.3 (27.0-32.0) pg MCHC 33.0 (31.0-37.0) g/dL RDW Std Deviation 43.2 (28.0-62.0) fl RDW Coeff of Kvng 13 (11.0-15.0) % Plt Count 235 (150-400) K/uL MPV 10.70 (7.40-12.00) fL Neut % (Auto) 81.2 H (48.0-80.0) % Lymph % (Auto) 12.0 L (16.0-40.0) % Williams % (Auto) 6.6 (0.0-15.0) % Eos % (Auto) 0.0 (0.0-7.0) % Baso % (Auto) 0.2 (0.0-1.5) % Neut # (Auto) 5.0 (1.4-5.7) K/uL Lymph # (Auto) 0.7 (0.6-2.4) K/uL Williams # (Auto) 0.4 (0.0-0.8) K/uL Eos # (Auto) 0.0 (0.0-0.7) K/uL Baso # (Auto) 0.0 (0.0-0.1) K/uL Nucleated RBC % 0.0 /100WBC Nucleated RBCs # 0 K/uL Sodium 141 (136-145) mmol/L Potassium 3.9 (3.5-5.1) mmol/L Chloride 105 (98-107) mmol/L Carbon Dioxide 27.9 (21.0-32.0) mmol/L BUN 15 (7.0-18.0) mg/dL Creatinine 0.8 (0.6-1.0) mg/dL Est Cr Clr Drug Dosing 56.93 mL/min Estimated GFR (MDRD) > 60.0 ml/min Glucose 165 H (74-106) mg/dL Calcium 8.2 L (8.5-10.1) mg/dL Total Bilirubin 0.2 (0.2-1.0) mg/dL AST 38 H (15-37) IU/L ALT 23 (14-63) IU/L Alkaline Phosphatase 90 (46-116) U/L Total Protein 6.8 (6.4-8.2) g/dL Albumin 3.0 L (3.4-5.0) g/dL Globulin 3.8 (2.6-4.0) g/dL Albumin/Globulin Ratio 0.8 L (0.9-1.6) Result Diagrams: 10/05/20 06:15 10/05/20 06:15 Sepsis Event Note - Evaluation Sepsis Screening Result: No Definite Risk - Focused Exam Vital Signs: Vital Signs Temp Pulse Resp BP BP Pulse Ox 10/05/20 11:57 36.3 C 80 17 104/64 92 L 10/05/20 08:40 118/67 10/05/20 08:34 36.2 C 67 16 118/67 92 L 10/05/20 03:12 36.1 C 83 19 131/66 91 L - Problem List Review Problem List Initiated/Reviewed/Updated: Yes - My Orders Last 24 Hours: My Active Orders 10/04/20 17:00 dexAMETHasone 6 mg PO Q24H 10/04/20 21:00 Enoxaparin [Lovenox] 40 mg SUBCUT Q24H Remdesivir 100 mg Sodium Chloride 0.9% [Normal Saline] 100 ml IV Q24H 10/06/20 05:11 CBC WITH AUTO DIFF [HEME] AM COMPREHENSIVE METABOLIC PN,CMP [CHEM] AM 10/07/20 05:11 CBC WITH AUTO DIFF [HEME] AM COMPREHENSIVE METABOLIC PN,CMP [CHEM] AM 10/08/20 05:11 CBC WITH AUTO DIFF [HEME] AM COMPREHENSIVE METABOLIC PN,CMP [CHEM] AM - Plan Plan:: This 64-year-old female admitted with acute hypoxic respiratory failure, COVID- 19 viral pneumonia 1. Acute hypoxic respiratory failure/COVID-19/viral pneumonia -remdesivir 100 mg IV daily -dexamethasone 6 mg p.o. daily -Combivent every 4 hours 2 puffs -Encourage I-S/Acapella and self proning -Lovenox daily -Monitor LFTs during remdesivir treatment -Oxygen 2 L NC currently, wean as tolerated 2. Hypertension -Monitor blood pressures continue losartan 3. Hypothyroidism -Continue levothyroxine 4. GERD -Continue Protonix VTE prophylaxis: Lovenox GI prophylaxis: Protonix CODE STATUS: DNR/DNI Dispo: 2 to 3 days pending improvement and ability to wean off oxygen.
[2020-10-05] MEDS: Dexamethasone 4 MG Tab PO SCH (17:42)
[2020-10-05] MEDS: REMDESIVIR 100 MG in Sodium Chloride 0.9% 100 ML IV SCH (21:05)
[2020-10-05] MEDS: Enoxaparin 40 MG/0.4 ML Syringe SUBCUT SCH (21:05)
[2020-10-06] MEDS: Albuterol/Ipratropium 4 GM Inhalation Spray INH SCH ×6 (01:57→22:42)
[2020-10-06] MEDS: Levothyroxine 88 MCG Tab PO SCH ×2 (06:16→06:50)
[2020-10-06] MEDS: Pantoprazole 40 MG Tab.CR PO SCH ×2 (06:16→06:49)
[2020-10-06 06:52] LABS: BLOOD UREA NITROGEN,BUN 14 mg/dL (7.0-18.0); CARBON DIOXIDE,CO2 23.8 mmol/L (21.0-32.0); CHLORIDE,CL 106 mmol/L (98-107); GLUCOSE RANDOM 174 mg/dL (74-106); POTASSIUM,K 3.4 mmol/L (3.5-5.1); SODIUM,NA 142 mmol/L (136-145)
[2020-10-06] MEDS: atorvaSTATin 20 MG Tab PO SCH (09:08)
[2020-10-06] MEDS: Losartan 50 MG Tab PO SCH (09:08)
[2020-10-06] MEDS: Escitalopram 10 MG Tab PO SCH (09:09)
[2020-10-06] MEDS ORDERED: Potassium Chloride 10% 20 MEQ/15 ML Soln 30 ML UD Cup PO ONE (12:30)
--- NOTE | 2020-10-06 16:26 | PCM.PN ---
- General Info Date of Service: 10/06/20 Admission Dx/Problem (Free Text): Admission Diagnosis/Problem Admission Diagnosis/Problem Hypoxia Subjective Update: Patient seen at bedside, no acute distress, continues to require 2 to 3 L of oxygen Functional Status: Reports: Tolerating Diet, Ambulating, Urinating - Review of Systems General: Reports: Weakness, Fatigue, Malaise. Denies: Fever Pulmonary: Reports: Shortness of Breath, Cough Cardiovascular: Reports: Dyspnea on Exertion. Denies: Chest Pain, Palpitations Gastrointestinal: Denies: Abdominal Pain, Constipation, Decreased Appetite Genitourinary: Denies: Dysuria, Frequency, Burning Musculoskeletal: Denies: Neck Pain, Shoulder Pain, Arm Pain Skin: Denies: Cyanosis, Jaundice, Mottled - Patient Data Vitals - Most Recent: Last Vital Signs Temp 36.6 C 10/06/20 12:33 Pulse 70 10/06/20 12:33 Resp 18 10/06/20 12:33 BP 111/72 10/06/20 12:33 Pulse Ox 93 L 10/06/20 12:33 Weight - Most Recent: 65.771 kg I&O - Last 24 Hours: Intake & Output 10/06/20 10/06/20 10/06/20 06:59 14:59 22:59 Intake Total 700 Output Total 1100 Balance -400 Lab Results Last 24 Hours: Laboratory Results - last 24 hr 10/06/20 10/06/20 Range/Units 05:55 05:55 WBC 7.69 (4.0-11.0) K/uL RBC 3.98 L (4.30-5.90) M/uL Hgb 11.8 L (12.0-16.0) g/dL Hct 35.2 L (36.0-46.0) % MCV 88.4 (80.0-98.0) fL MCH 29.6 (27.0-32.0) pg MCHC 33.5 (31.0-37.0) g/dL RDW Std Deviation 43.2 (28.0-62.0) fl RDW Coeff of Kvng 13 (11.0-15.0) % Plt Count 264 (150-400) K/uL MPV 11.00 (7.40-12.00) fL Neut % (Auto) 83.5 H (48.0-80.0) % Lymph % (Auto) 7.8 L (16.0-40.0) % [place] % (Auto) 8.7 (0.0-15.0) % Eos % (Auto) 0.0 (0.0-7.0) % Baso % (Auto) 0.0 (0.0-1.5) % Neut # (Auto) 6.4 H (1.4-5.7) K/uL Lymph # (Auto) 0.6 (0.6-2.4) K/uL [place] # (Auto) 0.7 (0.0-0.8) K/uL Eos # (Auto) 0.0 (0.0-0.7) K/uL Baso # (Auto) 0.0 (0.0-0.1) K/uL Nucleated RBC % 0.0 /100WBC Nucleated RBCs # 0 K/uL Sodium 142 (136-145) mmol/L Potassium 3.4 L (3.5-5.1) mmol/L Chloride 106 (98-107) mmol/L Carbon Dioxide 23.8 (21.0-32.0) mmol/L BUN 14 (7.0-18.0) mg/dL Creatinine 0.8 (0.6-1.0) mg/dL Est Cr Clr Drug Dosing 56.93 mL/min Estimated GFR (MDRD) > 60.0 ml/min Glucose 174 H (74-106) mg/dL Calcium 8.1 L (8.5-10.1) mg/dL Total Bilirubin 0.3 (0.2-1.0) mg/dL AST 34 (15-37) IU/L ALT 22 (14-63) IU/L Alkaline Phosphatase 88 (46-116) U/L Total Protein 6.6 (6.4-8.2) g/dL Albumin 2.8 L (3.4-5.0) g/dL Globulin 3.8 (2.6-4.0) g/dL Albumin/Globulin Ratio 0.7 L (0.9-1.6) Med Orders - Current: Current Medications Acetaminophen (Acetaminophen 325 Mg Tab) 650 mg PO Q4H PRN PRN Reason: Pain (Mild 1-3)/fever Albuterol/Ipratropium (Albuterol/Ipratropium 4 Gm Inhalation [place]) 0 gm INH Q4HRRT [facility] Last Admin: 10/06/20 13:10 Dose: 2 puff Documented by: Atorvastatin Calcium (Atorvastatin 20 Mg Tab) 20 mg PO DAILY [facility] Last Admin: 10/06/20 09:08 Dose: 20 mg Documented by: Benzonatate (Benzonatate 100 Mg Cap) 200 mg PO Q8H PRN PRN Reason: Cough Dexamethasone (Dexamethasone 4 Mg Tab) 6 mg PO Q24H [facility] Last Admin: 10/05/20 17:42 Dose: 6 mg Documented by: Enoxaparin Sodium (Enoxaparin 40 Mg/0.4 Ml Syringe) 40 mg SUBCUT Q24H [facility] Last Admin: 10/05/20 21:05 Dose: 40 mg Documented by: Escitalopram Oxalate (Escitalopram 10 Mg Tab) 20 mg PO DAILY [facility] Last Admin: 10/06/20 09:09 Dose: 20 mg Documented by: Guaifenesin/Codeine Phosphate (Codeine/Guaifenesin 10-100 Mg/5 Ml Syrup 5 Ml Cup) 5 ml PO Q4H PRN PRN Reason: Cough Remdesivir 100 mg/ Sodium (Chloride) 100 mls @ 100 mls/hr IV Q24H [facility] Stop: 10/07/20 21:59 Last Admin: 10/05/20 21:05 Dose: 100 mls/hr Documented by: Levothyroxine Sodium (Levothyroxine 88 Mcg Tab) 88 mcg PO ACBREAKFAST [facility] Last Admin: 10/06/20 06:50 Dose: Not Given Documented by: Losartan Potassium (Losartan 50 Mg Tab) 50 mg PO DAILY [facility] Last Admin: 10/06/20 09:08 Dose: 50 mg Documented by: Ondansetron HCl (Ondansetron 4 Mg Tab) 4 mg PO TID PRN PRN Reason: Nausea/Vomiting Pantoprazole Sodium (Pantoprazole 40 Mg Tab.Cr) 40 mg PO ACBREAKFAST [facility] Last Admin: 10/06/20 06:49 Dose: Not Given Documented by: Sodium Chloride (Sodium Chloride 0.9% 2.5 Ml Syringe) 2.5 ml FLUSH ASDIRECTED PRN PRN Reason: Keep Vein Open Discontinued Medications Dexamethasone (Dexamethasone 10 Mg/Ml Sdv) 10 mg IVPUSH ONETIME ONE Stop: 10/03/20 16:47 Last Admin: 10/03/20 17:27 Dose: 10 mg Documented by: Enoxaparin Sodium (Enoxaparin 40 Mg/0.4 Ml Syringe) 40 mg SUBCUT NOW ONE Stop: 10/03/20 23:31 Last Admin: 10/03/20 23:17 Dose: 40 mg Documented by: Sodium Chloride (Normal Saline) 1,000 mls @ 999 mls/hr IV .BOLUS ONE Stop: 10/03/20 16:38 Last Admin: 10/03/20 15:50 Dose: 999 mls/hr Documented by: Remdesivir 200 mg/ Sodium (Chloride) 250 mls @ 250 mls/hr IV ONETIME ONE Stop: 10/03/20 18:16 Last Admin: 10/03/20 19:23 Dose: Not Given Documented by: Remdesivir 200 mg/ Sodium (Chloride) 250 mls @ 250 mls/hr IV ONETIME ONE Stop: 10/03/20 21:59 Last Admin: 10/03/20 21:00 Dose: 250 mls/hr Documented by: Iopamidol (Iopamidol 755 Mg/Ml 500 Ml Multipack Bottle) 60 ml IVPUSH ONETIME ONE Stop: 10/03/20 18:19 Last Admin: 10/03/20 18:19 Dose: 60 ml Documented by: Potassium Chloride (Potassium Chloride 10% 20 Meq/15 Ml Soln 30 Ml Ud Cup) 40 meq PO ONETIME ONE Stop: 10/06/20 12:31 Last Admin: 10/06/20 13:10 Dose: 40 meq Documented by: - Exam Quality Assessment: Supplemental Oxygen General: Alert, Oriented Lungs: Clear to Auscultation, Normal Respiratory Effort, Decreased Breath Sounds Cardiovascular: Regular Rate, Regular Rhythm GI/Abdominal Exam: Normal Bowel Sounds, Soft, Non-Tender - Patient Data Lab Results Last 24 hrs: Laboratory Results - last 24 hr 10/06/20 10/06/20 Range/Units 05:55 05:55 WBC 7.69 (4.0-11.0) K/uL RBC 3.98 L (4.30-5.90) M/uL Hgb 11.8 L (12.0-16.0) g/dL Hct 35.2 L (36.0-46.0) % MCV 88.4 (80.0-98.0) fL MCH 29.6 (27.0-32.0) pg MCHC 33.5 (31.0-37.0) g/dL RDW Std Deviation 43.2 (28.0-62.0) fl RDW Coeff of Kvng 13 (11.0-15.0) % Plt Count 264 (150-400) K/uL MPV 11.00 (7.40-12.00) fL Neut % (Auto) 83.5 H (48.0-80.0) % Lymph % (Auto) 7.8 L (16.0-40.0) % [place] % (Auto) 8.7 (0.0-15.0) % Eos % (Auto) 0.0 (0.0-7.0) % Baso % (Auto) 0.0 (0.0-1.5) % Neut # (Auto) 6.4 H (1.4-5.7) K/uL Lymph # (Auto) 0.6 (0.6-2.4) K/uL [place] # (Auto) 0.7 (0.0-0.8) K/uL Eos # (Auto) 0.0 (0.0-0.7) K/uL Baso # (Auto) 0.0 (0.0-0.1) K/uL Nucleated RBC % 0.0 /100WBC Nucleated RBCs # 0 K/uL Sodium 142 (136-145) mmol/L Potassium 3.4 L (3.5-5.1) mmol/L Chloride 106 (98-107) mmol/L Carbon Dioxide 23.8 (21.0-32.0) mmol/L BUN 14 (7.0-18.0) mg/dL Creatinine 0.8 (0.6-1.0) mg/dL Est Cr Clr Drug Dosing 56.93 mL/min Estimated GFR (MDRD) > 60.0 ml/min Glucose 174 H (74-106) mg/dL Calcium 8.1 L (8.5-10.1) mg/dL Total Bilirubin 0.3 (0.2-1.0) mg/dL AST 34 (15-37) IU/L ALT 22 (14-63) IU/L Alkaline Phosphatase 88 (46-116) U/L Total Protein 6.6 (6.4-8.2) g/dL Albumin 2.8 L (3.4-5.0) g/dL Globulin 3.8 (2.6-4.0) g/dL Albumin/Globulin Ratio 0.7 L (0.9-1.6) Result Diagrams: 10/06/20 05:55 10/06/20 05:55 Sepsis Event Note - Evaluation Sepsis Screening Result: No Definite Risk - Focused Exam Vital Signs: Vital Signs Temp Pulse Resp BP BP Pulse Ox Pulse Ox 10/06/20 12:33 36.6 C 70 18 111/72 93 L 10/06/20 09:11 92 L 10/06/20 09:08 113/63 10/06/20 07:45 36.1 C 63 18 113/63 92 L 10/06/20 04:55 36.2 C 77 19 116/69 92 L - Problem List & Annotations (1) Acute respiratory failure with hypoxia SNOMED Code(s): 03448360, 773730544 Code(s): J96.01 - ACUTE RESPIRATORY FAILURE WITH HYPOXIA Status: Acute Current Visit: Yes (2) COVID-19 SNOMED Code(s): 008431098 Code(s): U07.1 - COVID-19 Status: Acute Current Visit: Yes (3) GERD (gastroesophageal reflux disease) SNOMED Code(s): 670219640 Code(s): K21.9 - GASTRO-ESOPHAGEAL REFLUX DISEASE WITHOUT ESOPHAGITIS Status: Chronic Current Visit: Yes (4) Hypertension SNOMED Code(s): 22634713 Code(s): I10 - ESSENTIAL (PRIMARY) HYPERTENSION Status: Chronic Current Visit: Yes (5) Hypothyroidism SNOMED Code(s): 79108820 Code(s): E03.9 - HYPOTHYROIDISM, UNSPECIFIED Status: Chronic Current Visit: Yes - Problem List Review Problem List Initiated/Reviewed/Updated: Yes - Plan Plan:: This 64-year-old female admitted with acute hypoxic respiratory failure, COVID- 19 viral pneumonia 1. Acute hypoxic respiratory failure/COVID-19/viral pneumonia -remdesivir 100 mg IV daily -dexamethasone 6 mg p.o. daily -Combivent every 4 hours 2 puffs -Encourage I-S/Acapella and self proning -Lovenox daily -Monitor LFTs during remdesivir treatment -Oxygen 2 L NC currently, wean as tolerated 2. Hypertension -Monitor blood pressures continue losartan 3. Hypothyroidism -Continue levothyroxine 4. GERD -Continue Protonix VTE prophylaxis: Lovenox GI prophylaxis: Protonix CODE STATUS: DNR/DNI Dispo: 2 to 3 days pending improvement and ability to wean off oxygen.
[2020-10-06] MEDS: Dexamethasone 4 MG Tab PO SCH (16:29)
[2020-10-06] MEDS: Enoxaparin 40 MG/0.4 ML Syringe SUBCUT SCH (20:44)
[2020-10-06] MEDS: REMDESIVIR 100 MG in Sodium Chloride 0.9% 100 ML IV SCH (20:47)
[2020-10-07] MEDS: Albuterol/Ipratropium 4 GM Inhalation Spray INH SCH ×6 (02:25→21:52)
[2020-10-07] MEDS: Pantoprazole 40 MG Tab.CR PO SCH (06:33)
[2020-10-07] MEDS: Levothyroxine 88 MCG Tab PO SCH (06:33)
[2020-10-07 07:09] LABS: BLOOD UREA NITROGEN,BUN 13 mg/dL (7.0-18.0); CHLORIDE,CL 107 mmol/L (98-107); GLUCOSE RANDOM 147 mg/dL (74-106); POTASSIUM,K 3.7 mmol/L (3.5-5.1); SODIUM,NA 141 mmol/L (136-145)
[2020-10-07] MEDS: Escitalopram 10 MG Tab PO SCH (08:46)
[2020-10-07] MEDS: Losartan 50 MG Tab PO SCH (08:47)
[2020-10-07] MEDS: atorvaSTATin 20 MG Tab PO SCH (08:48)
--- NOTE | 2020-10-07 15:30 | PCM.PN ---
- General Info Date of Service: 10/07/20 Admission Dx/Problem (Free Text): Admission Diagnosis/Problem Admission Diagnosis/Problem Hypoxia Subjective Update: Patient seen at bedside, no acute distress, currently at 4 L of oxygen, Functional Status: Reports: Pain Controlled, Tolerating Diet, Ambulating - Review of Systems General: Denies: Fever, Weakness, Fatigue Pulmonary: Reports: Shortness of Breath, Cough. Denies: Pleuritic Chest Pain Cardiovascular: Reports: Dyspnea on Exertion. Denies: Chest Pain, Palpitations Gastrointestinal: Denies: Abdominal Pain, Constipation, Decreased Appetite Genitourinary: Denies: Dysuria, Frequency, Burning Skin: Denies: Cyanosis, Jaundice, Mottled Neurological: Denies: Confusion, Dizziness, Headache Psychiatric: Denies: Confusion, Depression, Mood Lability - Patient Data Vitals - Most Recent: Last Vital Signs Temp 36.4 C 10/07/20 12:00 Pulse 60 10/07/20 12:00 Resp 18 10/07/20 12:00 BP 93/58 L 10/07/20 12:00 Pulse Ox 93 L 10/07/20 12:00 Weight - Most Recent: 65.771 kg I&O - Last 24 Hours: Intake & Output 10/07/20 10/07/20 10/07/20 06:59 14:59 22:59 Intake Total 1100 Output Total 750 Balance 350 Lab Results Last 24 Hours: Laboratory Results - last 24 hr 10/07/20 10/07/20 Range/Units 05:50 05:50 WBC 7.12 (4.0-11.0) K/uL RBC 3.97 L (4.30-5.90) M/uL Hgb 11.6 L (12.0-16.0) g/dL Hct 35.3 L (36.0-46.0) % MCV 88.9 (80.0-98.0) fL MCH 29.2 (27.0-32.0) pg MCHC 32.9 (31.0-37.0) g/dL RDW Std Deviation 43.0 (28.0-62.0) fl RDW Coeff of Kvng 13 (11.0-15.0) % Plt Count 265 (150-400) K/uL MPV 11.10 (7.40-12.00) fL Neut % (Auto) 80.7 H (48.0-80.0) % Lymph % (Auto) 10.4 L (16.0-40.0) % [place] % (Auto) 8.8 (0.0-15.0) % Eos % (Auto) 0.0 (0.0-7.0) % Baso % (Auto) 0.1 (0.0-1.5) % Neut # (Auto) 5.7 (1.4-5.7) K/uL Lymph # (Auto) 0.7 (0.6-2.4) K/uL [place] # (Auto) 0.6 (0.0-0.8) K/uL Eos # (Auto) 0.0 (0.0-0.7) K/uL Baso # (Auto) 0.0 (0.0-0.1) K/uL Nucleated RBC % 0.0 /100WBC Nucleated RBCs # 0 K/uL Sodium 141 (136-145) mmol/L Potassium 3.7 (3.5-5.1) mmol/L Chloride 107 (98-107) mmol/L Carbon Dioxide 24.0 (21.0-32.0) mmol/L BUN 13 (7.0-18.0) mg/dL Creatinine 0.8 (0.6-1.0) mg/dL Est Cr Clr Drug Dosing 56.93 mL/min Estimated GFR (MDRD) > 60.0 ml/min Glucose 147 H (74-106) mg/dL Calcium 8.0 L (8.5-10.1) mg/dL Total Bilirubin 0.3 (0.2-1.0) mg/dL AST 28 (15-37) IU/L ALT 20 (14-63) IU/L Alkaline Phosphatase 83 (46-116) U/L Total Protein 6.4 (6.4-8.2) g/dL Albumin 2.8 L (3.4-5.0) g/dL Globulin 3.6 (2.6-4.0) g/dL Albumin/Globulin Ratio 0.8 L (0.9-1.6) Med Orders - Current: Current Medications Acetaminophen (Acetaminophen 325 Mg Tab) 650 mg PO Q4H PRN PRN Reason: Pain (Mild 1-3)/fever Albuterol/Ipratropium (Albuterol/Ipratropium 4 Gm Inhalation [place]) 0 gm INH Q4HRRT [facility] Last Admin: 10/07/20 13:09 Dose: 2 puff Documented by: Atorvastatin Calcium (Atorvastatin 20 Mg Tab) 20 mg PO DAILY [facility] Last Admin: 10/07/20 08:48 Dose: 20 mg Documented by: Benzonatate (Benzonatate 100 Mg Cap) 200 mg PO Q8H PRN PRN Reason: Cough Dexamethasone (Dexamethasone 4 Mg Tab) 6 mg PO Q24H [facility] Last Admin: 10/06/20 16:29 Dose: 6 mg Documented by: Enoxaparin Sodium (Enoxaparin 40 Mg/0.4 Ml Syringe) 40 mg SUBCUT Q24H [facility] Last Admin: 10/06/20 20:44 Dose: 40 mg Documented by: Escitalopram Oxalate (Escitalopram 10 Mg Tab) 20 mg PO DAILY [facility] Last Admin: 10/07/20 08:46 Dose: 20 mg Documented by: Guaifenesin/Codeine Phosphate (Codeine/Guaifenesin 10-100 Mg/5 Ml Syrup 5 Ml Cup) 5 ml PO Q4H PRN PRN Reason: Cough Remdesivir 100 mg/ Sodium (Chloride) 100 mls @ 100 mls/hr IV Q24H [facility] Stop: 10/07/20 21:59 Last Admin: 10/06/20 20:47 Dose: 100 mls/hr Documented by: Levothyroxine Sodium (Levothyroxine 88 Mcg Tab) 88 mcg PO ACBREAKFAST [facility] Last Admin: 10/07/20 06:33 Dose: 88 mcg Documented by: Losartan Potassium (Losartan 50 Mg Tab) 50 mg PO DAILY [facility] Last Admin: 10/07/20 08:47 Dose: 50 mg Documented by: Ondansetron HCl (Ondansetron 4 Mg Tab) 4 mg PO TID PRN PRN Reason: Nausea/Vomiting Pantoprazole Sodium (Pantoprazole 40 Mg Tab.Cr) 40 mg PO ACBREAKFAST [facility] Last Admin: 10/07/20 06:33 Dose: 40 mg Documented by: Sodium Chloride (Sodium Chloride 0.9% 2.5 Ml Syringe) 2.5 ml FLUSH ASDIRECTED PRN PRN Reason: Keep Vein Open Discontinued Medications Dexamethasone (Dexamethasone 10 Mg/Ml Sdv) 10 mg IVPUSH ONETIME ONE Stop: 10/03/20 16:47 Last Admin: 10/03/20 17:27 Dose: 10 mg Documented by: Enoxaparin Sodium (Enoxaparin 40 Mg/0.4 Ml Syringe) 40 mg SUBCUT NOW ONE Stop: 10/03/20 23:31 Last Admin: 10/03/20 23:17 Dose: 40 mg Documented by: Sodium Chloride (Normal Saline) 1,000 mls @ 999 mls/hr IV .BOLUS ONE Stop: 10/03/20 16:38 Last Admin: 10/03/20 15:50 Dose: 999 mls/hr Documented by: Remdesivir 200 mg/ Sodium (Chloride) 250 mls @ 250 mls/hr IV ONETIME ONE Stop: 10/03/20 18:16 Last Admin: 10/03/20 19:23 Dose: Not Given Documented by: Remdesivir 200 mg/ Sodium (Chloride) 250 mls @ 250 mls/hr IV ONETIME ONE Stop: 10/03/20 21:59 Last Admin: 10/03/20 21:00 Dose: 250 mls/hr Documented by: Iopamidol (Iopamidol 755 Mg/Ml 500 Ml Multipack Bottle) 60 ml IVPUSH ONETIME ONE Stop: 10/03/20 18:19 Last Admin: 10/03/20 18:19 Dose: 60 ml Documented by: Potassium Chloride (Potassium Chloride 10% 20 Meq/15 Ml Soln 30 Ml Ud Cup) 40 meq PO ONETIME ONE Stop: 10/06/20 12:31 Last Admin: 10/06/20 13:10 Dose: 40 meq Documented by: - Exam Quality Assessment: Supplemental Oxygen General: Alert, Oriented Lungs: Normal Respiratory Effort, Decreased Breath Sounds Cardiovascular: Regular Rate, Regular Rhythm GI/Abdominal Exam: Normal Bowel Sounds, Soft, Non-Tender - Patient Data Lab Results Last 24 hrs: Laboratory Results - last 24 hr 10/07/20 10/07/20 Range/Units 05:50 05:50 WBC 7.12 (4.0-11.0) K/uL RBC 3.97 L (4.30-5.90) M/uL Hgb 11.6 L (12.0-16.0) g/dL Hct 35.3 L (36.0-46.0) % MCV 88.9 (80.0-98.0) fL MCH 29.2 (27.0-32.0) pg MCHC 32.9 (31.0-37.0) g/dL RDW Std Deviation 43.0 (28.0-62.0) fl RDW Coeff of Kvng 13 (11.0-15.0) % Plt Count 265 (150-400) K/uL MPV 11.10 (7.40-12.00) fL Neut % (Auto) 80.7 H (48.0-80.0) % Lymph % (Auto) 10.4 L (16.0-40.0) % [place] % (Auto) 8.8 (0.0-15.0) % Eos % (Auto) 0.0 (0.0-7.0) % Baso % (Auto) 0.1 (0.0-1.5) % Neut # (Auto) 5.7 (1.4-5.7) K/uL Lymph # (Auto) 0.7 (0.6-2.4) K/uL [place] # (Auto) 0.6 (0.0-0.8) K/uL Eos # (Auto) 0.0 (0.0-0.7) K/uL Baso # (Auto) 0.0 (0.0-0.1) K/uL Nucleated RBC % 0.0 /100WBC Nucleated RBCs # 0 K/uL Sodium 141 (136-145) mmol/L Potassium 3.7 (3.5-5.1) mmol/L Chloride 107 (98-107) mmol/L Carbon Dioxide 24.0 (21.0-32.0) mmol/L BUN 13 (7.0-18.0) mg/dL Creatinine 0.8 (0.6-1.0) mg/dL Est Cr Clr Drug Dosing 56.93 mL/min Estimated GFR (MDRD) > 60.0 ml/min Glucose 147 H (74-106) mg/dL Calcium 8.0 L (8.5-10.1) mg/dL Total Bilirubin 0.3 (0.2-1.0) mg/dL AST 28 (15-37) IU/L ALT 20 (14-63) IU/L Alkaline Phosphatase 83 (46-116) U/L Total Protein 6.4 (6.4-8.2) g/dL Albumin 2.8 L (3.4-5.0) g/dL Globulin 3.6 (2.6-4.0) g/dL Albumin/Globulin Ratio 0.8 L (0.9-1.6) Result Diagrams: 10/07/20 05:50 10/07/20 05:50 Sepsis Event Note - Evaluation Sepsis Screening Result: No Definite Risk - Focused Exam Vital Signs: Vital Signs Temp Pulse Resp BP BP Pulse Ox 10/07/20 12:00 36.4 C 60 18 93/58 L 93 L 10/07/20 08:49 36.3 C 66 20 109/60 88 L 10/07/20 08:47 109/60 10/07/20 06:28 36.3 C 60 18 108/55 L 95 - Problem List & Annotations (1) Acute respiratory failure with hypoxia SNOMED Code(s): 27249084, 780459120 Code(s): J96.01 - ACUTE RESPIRATORY FAILURE WITH HYPOXIA Status: Acute Current Visit: Yes (2) COVID-19 SNOMED Code(s): 401479241 Code(s): U07.1 - COVID-19 Status: Acute Current Visit: Yes (3) GERD (gastroesophageal reflux disease) SNOMED Code(s): 245402056 Code(s): K21.9 - GASTRO-ESOPHAGEAL REFLUX DISEASE WITHOUT ESOPHAGITIS Status: Chronic Current Visit: Yes (4) Hypertension SNOMED Code(s): 71860686 Code(s): I10 - ESSENTIAL (PRIMARY) HYPERTENSION Status: Chronic Current Visit: Yes (5) Hypothyroidism SNOMED Code(s): 25951164 Code(s): E03.9 - HYPOTHYROIDISM, UNSPECIFIED Status: Chronic Current Visit: Yes - Problem List Review Problem List Initiated/Reviewed/Updated: Yes - Plan Plan:: This 64-year-old female admitted with acute hypoxic respiratory failure, COVID- 19 viral pneumonia 1. Acute hypoxic respiratory failure/COVID-19/viral pneumonia -remdesivir 100 mg IV daily -dexamethasone 6 mg p.o. daily -Combivent every 4 hours 2 puffs -Encourage I-S/Acapella and self proning -Lovenox daily -Monitor LFTs during remdesivir treatment -Oxygen 2 L NC currently, wean as tolerated 2. Hypertension -Monitor blood pressures continue losartan 3. Hypothyroidism -Continue levothyroxine 4. GERD -Continue Protonix VTE prophylaxis: Lovenox GI prophylaxis: Protonix CODE STATUS: DNR/DNI Dispo: 2 to 3 days pending improvement and ability to wean off oxygen.
[2020-10-07] MEDS: Dexamethasone 4 MG Tab PO SCH (17:00)
[2020-10-07] MEDS: REMDESIVIR 100 MG in Sodium Chloride 0.9% 100 ML IV SCH (20:47)
[2020-10-07] MEDS: Enoxaparin 40 MG/0.4 ML Syringe SUBCUT SCH (21:51)
[2020-10-08] MEDS: Albuterol/Ipratropium 4 GM Inhalation Spray INH SCH ×6 (02:00→21:13)
[2020-10-08 06:30] LABS: BLOOD UREA NITROGEN,BUN 14 mg/dL (7.0-18.0); CARBON DIOXIDE,CO2 24.8 mmol/L (21.0-32.0); CHLORIDE,CL 105 mmol/L (98-107); GLUCOSE RANDOM 189 mg/dL (74-106); POTASSIUM,K 3.7 mmol/L (3.5-5.1); SODIUM,NA 140 mmol/L (136-145)
[2020-10-08] MEDS: Levothyroxine 88 MCG Tab PO SCH (07:01)
[2020-10-08] MEDS: Pantoprazole 40 MG Tab.CR PO SCH (07:01)
[2020-10-08] MEDS: atorvaSTATin 20 MG Tab PO SCH (09:06)
[2020-10-08] MEDS: Losartan 50 MG Tab PO SCH (09:06)
[2020-10-08] MEDS: Escitalopram 10 MG Tab PO SCH (09:07)
--- NOTE | 2020-10-08 16:07 | PCM.PN ---
- General Info Date of Service: 10/08/20 Admission Dx/Problem (Free Text): Admission Diagnosis/Problem Admission Diagnosis/Problem Hypoxia Subjective Update: Patient seen at bedside, no acute distress, currently at 1.5 L of oxygen, daughter was sitting by the window of the room Functional Status: Reports: Tolerating Diet, Ambulating, Urinating - Review of Systems General: Denies: Fever, Weakness, Fatigue Pulmonary: Reports: Cough. Denies: Shortness of Breath, Pleuritic Chest Pain Cardiovascular: Reports: Dyspnea on Exertion. Denies: Chest Pain, Palpitations Gastrointestinal: Denies: Abdominal Pain, Constipation, Decreased Appetite Genitourinary: Denies: Dysuria, Frequency, Burning Musculoskeletal: Denies: Shoulder Pain, Arm Pain, Hand Pain - Patient Data Vitals - Most Recent: Last Vital Signs Temp 36.3 C 10/08/20 13:15 Pulse 70 10/08/20 13:15 Resp 17 10/08/20 13:15 BP 98/56 L 10/08/20 13:15 Pulse Ox 91 L 10/08/20 13:15 Weight - Most Recent: 65.771 kg I&O - Last 24 Hours: Intake & Output 10/08/20 10/08/20 10/08/20 06:59 14:59 22:59 Intake Total 400 Output Total 800 Balance -400 Lab Results Last 24 Hours: Laboratory Results - last 24 hr 10/08/20 10/08/20 Range/Units 05:35 05:35 WBC 7.19 (4.0-11.0) K/uL RBC 4.01 L (4.30-5.90) M/uL Hgb 11.9 L (12.0-16.0) g/dL Hct 35.4 L (36.0-46.0) % MCV 88.3 (80.0-98.0) fL MCH 29.7 (27.0-32.0) pg MCHC 33.6 (31.0-37.0) g/dL RDW Std Deviation 42.3 (28.0-62.0) fl RDW Coeff of Kvng 13 (11.0-15.0) % Plt Count 291 (150-400) K/uL MPV 10.90 (7.40-12.00) fL Neut % (Auto) 82.6 H (48.0-80.0) % Lymph % (Auto) 7.0 L (16.0-40.0) % [place] % (Auto) 10.3 (0.0-15.0) % Eos % (Auto) 0.0 (0.0-7.0) % Baso % (Auto) 0.1 (0.0-1.5) % Neut # (Auto) 5.9 H (1.4-5.7) K/uL Lymph # (Auto) 0.5 L (0.6-2.4) K/uL [place] # (Auto) 0.7 (0.0-0.8) K/uL Eos # (Auto) 0.0 (0.0-0.7) K/uL Baso # (Auto) 0.0 (0.0-0.1) K/uL Nucleated RBC % 0.0 /100WBC Nucleated RBCs # 0 K/uL Sodium 140 (136-145) mmol/L Potassium 3.7 (3.5-5.1) mmol/L Chloride 105 (98-107) mmol/L Carbon Dioxide 24.8 (21.0-32.0) mmol/L BUN 14 (7.0-18.0) mg/dL Creatinine 0.8 (0.6-1.0) mg/dL Est Cr Clr Drug Dosing 56.93 mL/min Estimated GFR (MDRD) > 60.0 ml/min Glucose 189 H (74-106) mg/dL Calcium 8.1 L (8.5-10.1) mg/dL Total Bilirubin 0.3 (0.2-1.0) mg/dL AST 18 (15-37) IU/L ALT 22 (14-63) IU/L Alkaline Phosphatase 94 (46-116) U/L Total Protein 6.4 (6.4-8.2) g/dL Albumin 2.7 L (3.4-5.0) g/dL Globulin 3.7 (2.6-4.0) g/dL Albumin/Globulin Ratio 0.7 L (0.9-1.6) Med Orders - Current: Current Medications Acetaminophen (Acetaminophen 325 Mg Tab) 650 mg PO Q4H PRN PRN Reason: Pain (Mild 1-3)/fever Albuterol/Ipratropium (Albuterol/Ipratropium 4 Gm Inhalation Ethel) 0 gm INH Q4HRRT [facility] Last Admin: 10/08/20 13:46 Dose: 2 puff Documented by: Atorvastatin Calcium (Atorvastatin 20 Mg Tab) 20 mg PO DAILY [facility] Last Admin: 10/08/20 09:06 Dose: 20 mg Documented by: Benzonatate (Benzonatate 100 Mg Cap) 200 mg PO Q8H PRN PRN Reason: Cough Dexamethasone (Dexamethasone 4 Mg Tab) 6 mg PO Q24H [facility] Last Admin: 10/07/20 17:00 Dose: 6 mg Documented by: Enoxaparin Sodium (Enoxaparin 40 Mg/0.4 Ml Syringe) 40 mg SUBCUT Q24H [facility] Last Admin: 10/07/20 21:51 Dose: 40 mg Documented by: Escitalopram Oxalate (Escitalopram 10 Mg Tab) 20 mg PO DAILY [facility] Last Admin: 10/08/20 09:07 Dose: 20 mg Documented by: Guaifenesin/Codeine Phosphate (Codeine/Guaifenesin 10-100 Mg/5 Ml Syrup 5 Ml Cup) 5 ml PO Q4H PRN PRN Reason: Cough Levothyroxine Sodium (Levothyroxine 88 Mcg Tab) 88 mcg PO ACBREAKFAST [facility] Last Admin: 10/08/20 07:01 Dose: 88 mcg Documented by: Losartan Potassium (Losartan 50 Mg Tab) 50 mg PO DAILY [facility] Last Admin: 10/08/20 09:06 Dose: 50 mg Documented by: Ondansetron HCl (Ondansetron 4 Mg Tab) 4 mg PO TID PRN PRN Reason: Nausea/Vomiting Pantoprazole Sodium (Pantoprazole 40 Mg Tab.Cr) 40 mg PO ACBREAKFAST [facility] Last Admin: 10/08/20 07:01 Dose: 40 mg Documented by: Sodium Chloride (Sodium Chloride 0.9% 2.5 Ml Syringe) 2.5 ml FLUSH ASDIRECTED PRN PRN Reason: Keep Vein Open Discontinued Medications Dexamethasone (Dexamethasone 10 Mg/Ml Sdv) 10 mg IVPUSH ONETIME ONE Stop: 10/03/20 16:47 Last Admin: 10/03/20 17:27 Dose: 10 mg Documented by: Enoxaparin Sodium (Enoxaparin 40 Mg/0.4 Ml Syringe) 40 mg SUBCUT NOW ONE Stop: 10/03/20 23:31 Last Admin: 10/03/20 23:17 Dose: 40 mg Documented by: Sodium Chloride (Normal Saline) 1,000 mls @ 999 mls/hr IV .BOLUS ONE Stop: 10/03/20 16:38 Last Admin: 10/03/20 15:50 Dose: 999 mls/hr Documented by: Remdesivir 200 mg/ Sodium (Chloride) 250 mls @ 250 mls/hr IV ONETIME ONE Stop: 10/03/20 18:16 Last Admin: 10/03/20 19:23 Dose: Not Given Documented by: Remdesivir 200 mg/ Sodium (Chloride) 250 mls @ 250 mls/hr IV ONETIME ONE Stop: 10/03/20 21:59 Last Admin: 10/03/20 21:00 Dose: 250 mls/hr Documented by: Remdesivir 100 mg/ Sodium (Chloride) 100 mls @ 100 mls/hr IV Q24H [facility] Stop: 10/07/20 21:59 Last Admin: 10/07/20 20:47 Dose: 100 mls/hr Documented by: Iopamidol (Iopamidol 755 Mg/Ml 500 Ml Multipack Bottle) 60 ml IVPUSH ONETIME ONE Stop: 10/03/20 18:19 Last Admin: 10/03/20 18:19 Dose: 60 ml Documented by: Potassium Chloride (Potassium Chloride 10% 20 Meq/15 Ml Soln 30 Ml Ud Cup) 40 meq PO ONETIME ONE Stop: 10/06/20 12:31 Last Admin: 10/06/20 13:10 Dose: 40 meq Documented by: - Exam Quality Assessment: Supplemental Oxygen General: Alert, Oriented Lungs: Normal Respiratory Effort, Decreased Breath Sounds, Crackles Cardiovascular: Regular Rate, Regular Rhythm, No Murmurs - Patient Data Lab Results Last 24 hrs: Laboratory Results - last 24 hr 10/08/20 10/08/20 Range/Units 05:35 05:35 WBC 7.19 (4.0-11.0) K/uL RBC 4.01 L (4.30-5.90) M/uL Hgb 11.9 L (12.0-16.0) g/dL Hct 35.4 L (36.0-46.0) % MCV 88.3 (80.0-98.0) fL MCH 29.7 (27.0-32.0) pg MCHC 33.6 (31.0-37.0) g/dL RDW Std Deviation 42.3 (28.0-62.0) fl RDW Coeff of Kvng 13 (11.0-15.0) % Plt Count 291 (150-400) K/uL MPV 10.90 (7.40-12.00) fL Neut % (Auto) 82.6 H (48.0-80.0) % Lymph % (Auto) 7.0 L (16.0-40.0) % [place] % (Auto) 10.3 (0.0-15.0) % Eos % (Auto) 0.0 (0.0-7.0) % Baso % (Auto) 0.1 (0.0-1.5) % Neut # (Auto) 5.9 H (1.4-5.7) K/uL Lymph # (Auto) 0.5 L (0.6-2.4) K/uL [place] # (Auto) 0.7 (0.0-0.8) K/uL Eos # (Auto) 0.0 (0.0-0.7) K/uL Baso # (Auto) 0.0 (0.0-0.1) K/uL Nucleated RBC % 0.0 /100WBC Nucleated RBCs # 0 K/uL Sodium 140 (136-145) mmol/L Potassium 3.7 (3.5-5.1) mmol/L Chloride 105 (98-107) mmol/L Carbon Dioxide 24.8 (21.0-32.0) mmol/L BUN 14 (7.0-18.0) mg/dL Creatinine 0.8 (0.6-1.0) mg/dL Est Cr Clr Drug Dosing 56.93 mL/min Estimated GFR (MDRD) > 60.0 ml/min Glucose 189 H (74-106) mg/dL Calcium 8.1 L (8.5-10.1) mg/dL Total Bilirubin 0.3 (0.2-1.0) mg/dL AST 18 (15-37) IU/L ALT 22 (14-63) IU/L Alkaline Phosphatase 94 (46-116) U/L Total Protein 6.4 (6.4-8.2) g/dL Albumin 2.7 L (3.4-5.0) g/dL Globulin 3.7 (2.6-4.0) g/dL Albumin/Globulin Ratio 0.7 L (0.9-1.6) Result Diagrams: 10/08/20 05:35 10/08/20 05:35 Sepsis Event Note - Evaluation Sepsis Screening Result: No Definite Risk - Focused Exam Vital Signs: Vital Signs Temp Pulse Resp BP BP Pulse Ox 10/08/20 13:15 36.3 C 70 17 98/56 L 91 L 10/08/20 09:06 112/64 10/08/20 08:00 36.3 C 65 16 112/64 91 L - Problem List & Annotations (1) Acute respiratory failure with hypoxia SNOMED Code(s): 77812540, 621501330 Code(s): J96.01 - ACUTE RESPIRATORY FAILURE WITH HYPOXIA Status: Acute Current Visit: Yes (2) COVID-19 SNOMED Code(s): 093623840 Code(s): U07.1 - COVID-19 Status: Acute Current Visit: Yes (3) GERD (gastroesophageal reflux disease) SNOMED Code(s): 289045159 Code(s): K21.9 - GASTRO-ESOPHAGEAL REFLUX DISEASE WITHOUT ESOPHAGITIS Status: Chronic Current Visit: Yes (4) Hypertension SNOMED Code(s): 38340088 Code(s): I10 - ESSENTIAL (PRIMARY) HYPERTENSION Status: Chronic Current Visit: Yes (5) Hypothyroidism SNOMED Code(s): 26155174 Code(s): E03.9 - HYPOTHYROIDISM, UNSPECIFIED Status: Chronic Current Visit: Yes - Problem List Review Problem List Initiated/Reviewed/Updated: Yes - Plan Plan:: This 64-year-old female admitted with acute hypoxic respiratory failure, COVID- 19 viral pneumonia 1. Acute hypoxic respiratory failure/COVID-19/viral pneumonia -remdesivir 100 mg IV daily, patient has finished a course last night -dexamethasone 6 mg p.o. daily -Combivent every 4 hours 2 puffs -Encourage I-S/Acapella and self proning -Lovenox daily -Oxygen 1.5 L NC currently, wean as tolerated 2. Hypertension -Monitor blood pressures continue losartan 3. Hypothyroidism -Continue levothyroxine 4. GERD -Continue Protonix VTE prophylaxis: Lovenox GI prophylaxis: Protonix CODE STATUS: DNR/DNI Dispo: Possible DC in a.m.
[2020-10-08] MEDS: Dexamethasone 4 MG Tab PO SCH (16:55)
[2020-10-08] MEDS: Enoxaparin 40 MG/0.4 ML Syringe SUBCUT SCH (21:13)
[2020-10-09] MEDS: Albuterol/Ipratropium 4 GM Inhalation Spray INH SCH ×3 (03:29→10:14)
[2020-10-09] MEDS: Pantoprazole 40 MG Tab.CR PO SCH (06:57)
[2020-10-09] MEDS: Levothyroxine 88 MCG Tab PO SCH (06:57)
[2020-10-09] MEDS: atorvaSTATin 20 MG Tab PO SCH (07:59)
[2020-10-09] MEDS: Losartan 50 MG Tab PO SCH (08:00)
[2020-10-09] MEDS: Escitalopram 10 MG Tab PO SCH (08:00)
--- NOTE | 2020-10-09 13:52 | PCM.DCSUM1 ---
Discharge Summary - Hospital Course Free Text/Narrative:: This 64-year-old female with past medical history of HTN, GERD, and for thyroidism presented to the ER with complaints of shortness of breath and generalized weakness. She reports that she tested positive for COVID-19 few days ago. She said she is having a hard time getting around and caring for herself due to weakness and fatigue. She reports increased shortness of breath with ambulation denies any cough. Denies any fevers or chills but does have dif fuse body aches with decreased oral intake. She also reports diarrhea, that is clear and liquidy. Denies chest pain. Reports mild shortness of breath with mild non productive cough this morning. Denies abdominal pain. Ate some breakfast. She denies tobacco use, alcohol use and no recreational drug use. In the ER CBC within normal limits. D-dimer mildly elevated at 0.67. Sodium 140 potassium 3.3 BUN 19 creatinine 0.9. Glucose 110 lactic acid normal at 1.3. AST mildly elevated at 49 troponin negative Covid swab repeated was positive. Chest x-ray in the ER obtained which reveals bilateral pulmonary opacities consistent with provided history of COVID-19. Due to mildly elevated D-dimer CT angio was performed no pulmonary embolism noted but did note the ground glass opacities throughout the lungs. Coronary artery disease. Small hiatal hernia. Patient was offered remdesivir in the ER but due to her being ill for approximately the last 2 weeks she had initially refused this. She was treated with 10 mg dexamethasone along with normal saline 1 L bolus. In the ER she was noted to be hypoxic on room air sating 84%. She was placed on 4 L sats increased to 95% and she has maintained well at 2 L in the mid 90s. She admitted inpatient for acute hypoxic respiratory failure and COVID-19 viral pneumonia. Patient was needing initially 2Lts, next day her requirement delmi to 4 Lts. Patient was started on IV remdesivir, oral decadron, Combivent, Lovenox, incentive spirometry. Over next few days his oxygen requirement improved, she finished her course of Remdesivir, eventually she was needing 2L Lts to maintain his pulse oxy >88% on rest. Patient was keen on going home and was discharged with home oxygen and recommended to wean off as able. Patient was sent home on remaining doses of oral dexamethasone and inhaler Combivent. Patient was given instructions to return if her breathing or oxygen requirement gets worse. Patient is to follow up with his pcp upon dc Diagnosis: Stroke: No - Discharge Data Discharge Date: 10/09/20 Discharge Disposition: Home, Self-Care 01 Condition: Stable - Referral to Home Health Primary Care Physician: PCP None - Discharge Diagnosis/Problem(s) (1) Acute respiratory failure with hypoxia SNOMED Code(s): 68665557, 723609052 ICD Code: J96.01 - ACUTE RESPIRATORY FAILURE WITH HYPOXIA Status: Acute (2) COVID-19 SNOMED Code(s): 062055064 ICD Code: U07.1 - COVID-19 Status: Acute (3) GERD (gastroesophageal reflux disease) SNOMED Code(s): 955208241 ICD Code: K21.9 - GASTRO-ESOPHAGEAL REFLUX DISEASE WITHOUT ESOPHAGITIS Status: Chronic (4) Hypertension SNOMED Code(s): 68851127 ICD Code: I10 - ESSENTIAL (PRIMARY) HYPERTENSION Status: Chronic (5) Hypothyroidism SNOMED Code(s): 58461229 ICD Code: E03.9 - HYPOTHYROIDISM, UNSPECIFIED Status: Chronic - Patient Instructions Diet: Heart Healthy Diet Activity: As Tolerated Driving: May Drive Today Showering/Bathing: May Shower Notify Provider of: Fever, Increased Pain, Swelling and Redness, Drainage, Nause a and/or Vomiting - Discharge Plan *PRESCRIPTION DRUG MONITORING PROGRAM REVIEWED*: Not Applicable *COPY OF PRESCRIPTION DRUG MONITORING REPORT IN PATIENT SHERRON: Not Applicable Prescriptions/Med Rec: Albuterol/Ipratropium [Combivent Respimat] 1 puff INH Q4HRRT PRN #1 inhaler PRN Reason: Shortness Of Breath dexAMETHasone [Dexamethasone] 6 mg PO Q24H #8 tablet Home Medications: Home Meds Escitalopram [Lexapro] 20 mg PO DAILY 10/03/20 [History] Levothyroxine [Synthroid] 88 mcg PO ACBREAKFAST 10/03/20 [History] Losartan [Cozaar] 50 mg PO DAILY 10/03/20 [History] Omeprazole 40 mg PO DAILY 10/03/20 [History] atorvaSTATin [Lipitor] 20 mg PO DAILY 10/03/20 [History] ondansetron HCL [Zofran] 4 mg PO TID PRN 10/03/20 [History] traZODone 50 - 100 mg PO BEDTIME 10/07/20 [History] Albuterol/Ipratropium [Combivent Respimat] 1 puff INH Q4HRRT PRN #1 inhaler 10/09/20 [Rx] dexAMETHasone [Dexamethasone] 6 mg PO Q24H #8 tablet 10/09/20 [Rx] Patient Handouts: Ipratropium; Albuterol Inhalation [place] (Combivent Respimat), COVID-19 Frequently Asked Questions, COVID-19, COVID-19 Vaccine Information, 10 Things You Can Do to Manage Your COVID-19 Symptoms at Home - [facility] (08/09/2019), Home Oxygen Use, Adult, Dexamethasone tablets Referrals: PCP,None [Primary Care Provider] - - Discharge Summary/Plan Comment DC Time >30 min.: Yes Total # of Minutes for Discharge Time: arranging home oxygen - Patient Data Vitals - Most Recent: Last Vital Signs Temp 36.1 C 10/09/20 12:00 Pulse 66 10/09/20 12:00 Resp 18 10/09/20 12:00 BP 107/59 L 10/09/20 12:00 Pulse Ox 93 L 10/09/20 12:00 Weight - Most Recent: 65.771 kg I&O - Last 24 hours: Intake & Output 10/08/20 10/09/20 10/09/20 22:59 06:59 14:59 Intake Total 700 600 Output Total 300 900 Balance 400 -300 Med Orders - Current: Current Medications Acetaminophen (Acetaminophen 325 Mg Tab) 650 mg PO Q4H PRN PRN Reason: Pain (Mild 1-3)/fever Albuterol/Ipratropium (Albuterol/Ipratropium 4 Gm Inhalation [place]) 0 gm INH Q4HRRT [facility] Last Admin: 10/09/20 10:14 Dose: 2 puff Documented by: Atorvastatin Calcium (Atorvastatin 20 Mg Tab) 20 mg PO DAILY [facility] Last Admin: 10/09/20 07:59 Dose: 20 mg Documented by: Benzonatate (Benzonatate 100 Mg Cap) 200 mg PO Q8H PRN PRN Reason: Cough Dexamethasone (Dexamethasone 4 Mg Tab) 6 mg PO Q24H [facility] Last Admin: 10/08/20 16:55 Dose: 6 mg Documented by: Enoxaparin Sodium (Enoxaparin 40 Mg/0.4 Ml Syringe) 40 mg SUBCUT Q24H [facility] Last Admin: 10/08/20 21:13 Dose: 40 mg Documented by: Escitalopram Oxalate (Escitalopram 10 Mg Tab) 20 mg PO DAILY [facility] Last Admin: 10/09/20 08:00 Dose: 20 mg Documented by: Guaifenesin/Codeine Phosphate (Codeine/Guaifenesin 10-100 Mg/5 Ml Syrup 5 Ml Cup) 5 ml PO Q4H PRN PRN Reason: Cough Levothyroxine Sodium (Levothyroxine 88 Mcg Tab) 88 mcg PO ACBREAKFAST [facility] Last Admin: 10/09/20 06:57 Dose: 88 mcg Documented by: Losartan Potassium (Losartan 50 Mg Tab) 50 mg PO DAILY [facility] Last Admin: 10/09/20 08:00 Dose: 50 mg Documented by: Ondansetron HCl (Ondansetron 4 Mg Tab) 4 mg PO TID PRN PRN Reason: Nausea/Vomiting Pantoprazole Sodium (Pantoprazole 40 Mg Tab.Cr) 40 mg PO ACBREAKFAST [facility] Last Admin: 10/09/20 06:57 Dose: 40 mg Documented by: Sodium Chloride (Sodium Chloride 0.9% 2.5 Ml Syringe) 2.5 ml FLUSH ASDIRECTED PRN PRN Reason: Keep Vein Open Discontinued Medications Dexamethasone (Dexamethasone 10 Mg/Ml Sdv) 10 mg IVPUSH ONETIME ONE Stop: 10/03/20 16:47 Last Admin: 10/03/20 17:27 Dose: 10 mg Documented by: Enoxaparin Sodium (Enoxaparin 40 Mg/0.4 Ml Syringe) 40 mg SUBCUT NOW ONE Stop: 10/03/20 23:31 Last Admin: 10/03/20 23:17 Dose: 40 mg Documented by: Sodium Chloride (Normal Saline) 1,000 mls @ 999 mls/hr IV .BOLUS ONE Stop: 10/03/20 16:38 Last Admin: 10/03/20 15:50 Dose: 999 mls/hr Documented by: Remdesivir 200 mg/ Sodium (Chloride) 250 mls @ 250 mls/hr IV ONETIME ONE Stop: 10/03/20 18:16 Last Admin: 10/03/20 19:23 Dose: Not Given Documented by: Remdesivir 200 mg/ Sodium (Chloride) 250 mls @ 250 mls/hr IV ONETIME ONE Stop: 10/03/20 21:59 Last Admin: 10/03/20 21:00 Dose: 250 mls/hr Documented by: Remdesivir 100 mg/ Sodium (Chloride) 100 mls @ 100 mls/hr IV Q24H [facility] Stop: 10/07/20 21:59 Last Admin: 10/07/20 20:47 Dose: 100 mls/hr Documented by: Iopamidol (Iopamidol 755 Mg/Ml 500 Ml Multipack Bottle) 60 ml IVPUSH ONETIME ONE Stop: 10/03/20 18:19 Last Admin: 10/03/20 18:19 Dose: 60 ml Documented by: Potassium Chloride (Potassium Chloride 10% 20 Meq/15 Ml Soln 30 Ml Ud Cup) 40 meq PO ONETIME ONE Stop: 10/06/20 12:31 Last Admin: 10/06/20 13:10 Dose: 40 meq Documented by:
== END 2020-10-09 14:55 | disposition home or self-care (01) | DRG 177 ==
LOC: MW.ED 14:49 → MW.MS 18:16 → UNDOADMIN 19:10 → MW.MS 19:10
PROVIDERS: ADMIT Internal Medicine; ATTEND Internal Medicine
PROC: XW033E5 Introduction of Remdesivir Anti-infective into Peripheral Vein, Percutaneous Approach, New Technology Group 5 (ICD-10-PCS; principal; 2020-10-03)
DX: U07.1 COVID-19 (principal); J12.82 Pneumonia due to coronavirus disease 2019; J96.01 Acute respiratory failure with hypoxia; K21.9 Gastro-esophageal reflux disease without esophagitis; I10 Essential (primary) hypertension; E78.00 Pure hypercholesterolemia, unspecified; Z66 Do not resuscitate; E03.9 Hypothyroidism, unspecified; Z79.890 Hormone replacement therapy; Z88.8 Allergy status to other drugs, medicaments and biological substances; Z79.899 Other long term (current) drug therapy
CPT/HCPCS: 36415; 71045; 71045-26; 71275; 71275-26; 80053; 82248; 83605; 83690; 83735; 84100; 84484; 85025; 85379; 93005; 93010; 94640; 96374; 99284; 99285-25; A9270-GY; J1100; J1650; J7030; J7050; J8540; Q9967; U0002